=== PATIENT | male | born 1965 ===

== ENCOUNTER 2025-06-29 08:11 | Outpatient (AMB) | payer MEDICARE, SELFPAY ==
--- OUTSIDE RECORDS SUMMARY | 2024-11-06 04:15 | XMS_ITS ---
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 anicteric PERIPHERAL PULSES: normal BREASTS: no masses palpable b ilaterally MUSCULOSKELETAL: extremities unremark able, no clubbing, cyanosis or edema, There is pain to manipulation of the right thumb and right wrist and both knees without crepitus. LYMPH NODES: no enlarged lymph no josefina,spleen normal RECTAL EXAM: not examined PSYCH: alert, oriented ORAL CAVITY: normal, unremarkable Consultation Request Notes Referral Date Referring Provider Referred Provider Not es 11/06/2024 Will Hayes [facility] evaluate and treatment multiple joint pains in both hands and knees
--- OUTSIDE RECORDS SUMMARY | 2024-12-25 06:09 | XMS_ITS ---
Author Organization Will Hayes III, MD Address [address] [place] [address] [place] [address] Care Team Providers Care Diamond Driller Name Role Phone Dr. Will Hayes III Primary Care Provider [phone] REASON FOR VISIT Message Social History Sex Assigned At : Social History Observation Description Sex Assigned At Male Encounters Encounter Location Date Provider Diagnosis Will Hayes III, MD [address] [place] [address] [place] [address] 12/25/2024 Will Hayes Plan Of Treatment Next Appt Details Provider Name:Will Hayes , 09/07/2025 10:00:00 AM, [address] [place] [address] [place], [address], Provider Name:Will Hayes , 02/08/2026 02:00:00 PM, [address] [place] [address] [place], [address], Progress Notes * Zak ZAIDI ADOB:[birth year] (59 yo M)Acc No.[id number]:12/25/2024 Patient: Ike Zak BAILEY :1965 A ge:59 Y S ex:Male Address:[address] [place] [id number] * true * Date: Generated for Printi ng/Faxing/eTransmitting on: 08/29/2024 08:20 AM EST
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
--- OUTSIDE RECORDS SUMMARY | 2025-01-05 06:15 | XMS_ITS ---
Author Organization Will Hayes III, MD Address [address] [place] [address] [place] [address] Care Team Providers Care Yardage Control Clerk Name Role Phone Dr. Will Hayes III Primary Care Provider Allergies Allergen (clinical drug ingredient) Drug/Non Drug Allergy documented on EMR Reaction Allergy Type Onset Date Status Penicillin Unknown Drug Allergy Active ibuprofen Ibuprofen Unknown Drug Allergy Active aspirin Aspirin Unknown Drug Allergy Active REASON FOR VISIT Inflammatory arthritis both hands, Multiple myeloma in Remission, Lumbar radiculopathy, Hypertension, Cardiomyopathy, Hyperlipidemia, 9/a furniture, History of stem cell bone marrow transplant Medications Medication SIG (Take, Route, Frequency, [...] o r milk Orally Once a day 12/26/2024 Active Atorvastatin Calcium 20 MG Oral Active Clobetasol Propionate 0.05 % 1 application Externally Twice a day 02/01/2024 Active Social History Tobacco Use: Social History Observation Description Date Details (start date - stop date) Never Smoker NA - NA Sex Assigned At : Social History Observation Description Sex Assigned At Male Tobacco Use/Smoking Question Answer Notes Patient is a nonsmoker Additional Findings: Tobacco Non-User Aggressive non-smoker Vital Signs Height 73 in 01/05/2025 Weight 198 lbs 01/05/2025 BMI 26.12 kg/m2 01/05/2025 Encounters Encounter Location Date Provider Diagnosis Will Hayes III, MD [address] [place] [address] [place] [address] 01/05/2025 Will Hayes Multiple myeloma, remission status unspecified C90.00 ; Overweight E66.3 ; Lumbar radiculopathy M54.16 and Essential hypertension I10 Assessments Encounter Date Diagnosis (ICD Code) Assessment Notes Treat ment Notes Treatment Clinical Notes 01/05/2025 Multiple myeloma, remission status unspecified (ICD-10 - C90.00) Close observation and will continue. The remainder is a care of medical oncology [facility] as well as the [facility] [place]. The myeloma appears to be in remission still. 01/05/2025 Overweight (ICD-10 - E66.3) His body mass index is slightly higher than 25. It does not represent a health problem. 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 01/05/2025 Lumbar radiculopathy (ICD-10 - M54.16) Therapy for the joint pains. After the blood work if necessary prednisone will be considered. I will consult with the oncologist prior to this. 01/05/2025 Essential hypertension (ICD-10 - I10) His blood pressure has been well controlled. No change in the regimen [...] o r milk Orally Once a day 12/26/2024 Atorvastatin Calcium 20 MG Oral Clobetasol Propionate 0.05 % 1 applicati on Externally Twice a day 02/01/2024 Next Appt Details Follow Up: 3 Weeks, Reason: ov Provider Name:Will Hayes , 09/07/2025 10:00:00 AM, [address] [place] [address] [place], [address], Provider Name:Will Hayes , 02/08/2026 02:00:00 PM, [address] [place] [address] [place], [address], Progress Notes * Zak ZAIDI ADOB:[birth year] (59 yo M)Acc No.[id number]:01/05/2025 Patient: Zak CELESTE Provider: Jyoti Hayes MD :1965 A ge:59 Y S ex:Male Date:01/05/2025 Address:[address] [place], [place] [id number] Subjective: * Chief Complaints: * I nflammatory arthritis both handsMultiple myeloma in RemissionLumbar radiculopathyHypertensionCardiomyopathyHyperlipidemia9/a furnitureHistory of stem cell bone marrow transplant * HPI: * : He reports prednisone Hosie arthritis in his hands. He has an appointment to see rheumatology next month. Is beginning to feel better. There was no sign of recurrent myeloma on his examination today. Telehealth L ocation of provider rendering services: { ...} [address] [place] [address] L ocation of patient: pascual melo listed in demographics for today's visit P atient identification confirmed using: MICHELLE Ohara ame T elehealth method: T elephone only. Patient not visible to care provider. C onsent: P atient verbally consented to treatment, Patient verbally consented to billing insurance company, Patient informed of any privacy concerns related to method of visit T otal time spent with patient (mins) 1 5 * ROS: G eneral/Constitutional: pain F ingers and wrists, otherwise only normal aches and pains. C hills d enies. F atigue a [...] Muscle aches d enies. P ainful joints B oth hands.?Sciatica d enies. W eakness d enies. S kin: Itching d enies. R david d enies. S kin lesion(s)?denies. N eurologic: Difficulty speaking d enies. D izziness d enies.?Headache d enies. L ow back pain d enies. P sychiatric: Depressed mood w hich is mild. * Medical History: * Surgical History: D [...] ggressive non-smoker H roverto was born in [place], [place]. He has two healthy children with his ex-girlfriend Noe. 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 * Medications: T akingClobetasol Propionate 0.05 % Cream 1 application Externally Twice a day Atorvastatin Calcium 20 MG Tablet Oral Valsartan 80 MG Tablet 1 tablet Orally Once a day Calcium Carbonate Antacid 648 MG Tablet TAKE 1 TABLET BY MOUTH TWICE A DAY Oral Metoprolol Succinate ER 50 MG Tablet Extended Release 24 Hour 1 tablet Orally Once a day predniSONE 10 MG Tablet 1 tablet with food or milk Orally Once a day , stop date 01/15/2025Medication List reviewed and reconciled with the patientTaking [...] 1 tablet Orally Once a day Taking predniSONE 10 MG Tablet 1 tablet with food or milk Orally Once a day , stop date 01/15/2025Medication List reviewed and reconciled with the patient * Allergies: A spirinIbuprofenPenicillinno[Allergies Verified] Objective: * Vitals: H t: 73, Wt: 198, BMI:26.12, Ht-cm: 185.42, Wt-k.81. Assessment: * Assessment: 1. M ultiple myeloma, remission status unspecified - C90.00 (Primary) N otes :Close observation and will continue. The remainder is a care of medical oncology [facility] as well as the [facility] [place]. The myeloma appears to be in remission still. 2 . O verweight - E66.3 N otes :His body mass index is slightly higher than 25. It does not represent a health problem. 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 3 . L umbar radiculopathy - M54.16 N otes :Therapy for the joint pains. After the blood work if necessary prednisone will be considered. I will consult with the oncologist prior to this. 4 . E ssential hypertension - I10 N otes :His blood pressure has been well controlled. No change in the regimen as needed. time. Plan: * Treatment: * Procedure Codes: 9 8012 SYNCH AUDIO-ONLY EST SF 10 * Preventive Medicine: Counseling: C are goal [...] * Provider: Jyoti Hayes MD Date: 0 01/05/2025 Generated for Shanita sanchez/Yeny/Radhasmitting on: 08/29/2024 08:19 AM EST History and Physical Notes * HPI (History of Present Illness) Category Sub-Category Detail Notes Telehealth Location of [facility] rendering services:: {...} [address] [facility] [address] Location of patient:: address listed in demographics for today's visit Patient identification confirmed using:: Name, Telehealth method:: Telephone only. Sarahy ent not visible to care provider. Consent:: Patient verbally c onsented to treatment, Patient verbally consented to billing insurance company, Patient informed of any privacy concerns related to method of visit Total time spent with patient (mins): 15
--- OUTSIDE RECORDS SUMMARY | 2025-01-19 05:45 | XMS_ITS ---
Author Organization Will Hayes III, MD Address [address] [place] [address] [place] [address] Care Team Providers Care Stem Threshing Machine Operator Name Role Phone Dr. Will Hayes III Primary Care Provider Allergies Allergen (clinical drug ingredient) Drug/Non Drug Allergy documented on EMR Reaction Allergy Type Onset Date Status Penicillin Unknown Drug Allergy Active ibuprofen Ibuprofen Unknown Drug Allergy Active aspirin Aspirin Unknown Drug Allergy Active REASON FOR VISIT Inflammatory arthritis, Multiple myeloma, History of bone marrow transplant, Lumbar radiculopathy, Benign prostatic hypertrophy, Hypertension Medications Medication SIG (Take, Route, Frequency, Duration) Notes Start Date End Date Status predniSONE 10 MG 1 tablet with food o r milk Orally Once a day 12/26/2024 Active Metoprolol Succinate ER 50 MG 1 tablet Orally Once a day Active Calcium Carbonate Antacid 648 MG TAKE 1 TABLET BY MOUTH TWICE A DAY Oral Active Valsartan 80 MG 1 tablet Orally Once a day Active Atorvastatin Calcium 20 MG Oral Active [...] Aggressive non-smoker Vital Signs Height 73 in 01/19/2025 Weight 198 lbs 01/19/2025 BMI 26.12 kg/m2 01/19/2025 Encounters Encounter Location Date Provider Diagnosis Will Hayes III, MD [address] [place] [address] [place] [address] 01/19/2025 Will Hayes Multiple myeloma, remission status unspecified C90.00 ; Multiple joint pain M25.50 ; Hx of stem cell transplant Z94.84 ; Other cardiomyopathy I42.8 and Essential hypertension I10 Assessments Encounter Date Diagnosis (ICD Code) Assessment Notes Treat ment Notes Treatment Clinical Notes 01/19/2025 Multiple myeloma, remission status unspecified (ICD-10 - C90.00) He is stable in remission. He will maintain in the care of medical oncology [facility] as well as the [facility] [place]. The myeloma appears to be in remission still. 01/19/2025 Multiple joint pain (ICD-10 - M25.50) He was continued on the prednisone although he has had no relief so far. Is going to see rheumatology 01/19/2025 Hx of stem cell transplant (ICD-10 - Z94.84) He has relapsed since. Continues on treatment. 01/19/2025 Other cardiomyopathy (ICD-10 - I42.8) His current ejection fraction is normal. He will be reevaluated periodically. He is no longer symptomatic. 01/19/2025 Essential hypertension (ICD-10 - I10) His blood pressure has been well controlled. No change in the regimen as needed. time. Plan Of Treatment Medication Medication Name Sig Start Date Stop Date Notes predniSONE 10 MG 1 tablet with food o r milk Orally Once a day 12/26/2024 Metoprolol Succinate ER 50 MG 1 tablet Orally Once a day Calcium Carbonate Antacid 64 8 MG TAKE 1 TABLET BY MOUTH TWICE A DAY Oral Valsartan 80 MG 1 tablet Orally Once a day Atorvastatin Calcium 20 MG Oral Clobetasol Propionate 0.05 % 1 applicati on Externally Twice a day 02/01/2024 Next Appt Details Follow Up: As Scheduled, Sruthi son: Annual Exam Provider Name:Will Hayes , 09/07/2025 10:00:00 AM, [address] [place] [address] [address], [place], [address], Provider Name:Will Hayes , 02/08/2026 02:00:00 PM, [address] [place] [address] [address], [place], [address], Progress Notes * Zak WEINSTEIN ADOB:[birth year] (59 yo M)Acc No.[id number]:01/19/2025 Patient: Zak CELESTE Provider: Jyoti Hayes MD :1965 A ge:59 Y S ex:Male Date:01/19/2025 Address:[address] [place], [place] [id number] Subjective: * Chief Complaints: * I nflammatory arthritisMultiple myelomaHistory of bone marrow transplantLumbar radiculopathyBenign prostatic hypertrophyHypertension * HPI: * : This telehealth visit took place over 15 minutes with the patient at home and me in my office. He gave consent for billing. His arthritis is about the same despite medication. It is primarily in his hands and upper extremities. He has had no fever or chills and is eating without any difficulty. He has had no nausea or vomiting. He is being referred to rheumatology as soon as possible. Prednisone will be continued. Telehealth L ocation of provider rendering services: { ...} [address] [facility] [address] L ocation of patient: pascual ddress listed in demographics for today's visit P [...] 1 5 * ROS: G eneral/Constitutional: pain J oints of the upper extremities. C hills d enies. F atigue a dmits. F ever d enies. E NT: Decreased hearing d enies. R espiratory: Cough d enies. C ardiovascular: Chest pain with exertion d enies. D yspnea on exertion?denies. S hortness of breath d enies. G astrointestinal: Constipation d enies. D ecreased appetite d enies.?Diarrhea d enies. H eartburn d enies. N ausea d enies. R ectal bleeding?denies. V omiting d enies. H ematology: bruising d enies. p etechiae d enies. S wollen glands n one have been noted. G enitourinary: Frequent urination t wice a night. M usculoskeletal: Muscle aches d [...] ggressive non-smoker H roverto was born in [place], [place]. He has two healthy children with his ex-girlfriend Noe. 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 * Medications: T akingClobetasol Propionate 0.05 % [...] food or milk Orally Once a day Medication List reviewed [...] food or milk Orally Once a day Medication List reviewed and reconciled with the patient * Allergies: A spirinIbuprofenPenicillinno[Allergies Verified] Objective: * Vitals: H t: 73, Wt: 198, BMI:26.12, Ht-cm: 185.42, Wt-k.81. * P ast Orders: L ab:Vitamin D 25-OH Total (Order Date - 11/06/2024) (Collection Date & Time - 11/06/2024 09:59 AM) Value Reference Range Vitamin D 25-OH Total 47.4 >30 - ng/mL Lab:Immunofixation Pnl, Seru m * Collection Date [...] Interpretation SEE NOTE SEE NOTE SEE NOTE * Lab:Complete Blood Count Aut o Diff [...] Time - 11/06/2024 09:59 AM)?ValueReference Range?Erythrocyte Sedimentation [id number] - MM/HR ???Lab:Rheumatoid Factor (Order Date - [...] Creatinine Clr Calc Pharmacy 89.8 NR 99.1 ???Lab:C Reactive Protein (Order Date - 11/06/2024) (Collection Date & Time - 11/06/2024 09:59 AM)?ValueReference Range?C Reactive Protein4.09H< or = 0.50 - mg/dL ???Lab:Uric Acid (Order Date - 11/06/2024) (Collection Date & Time - 11/06/2024 09:59 AM)?ValueReference Range?Uric Acid5.13.4-7.0 - mg/dL ???Lab:Prostate Specific Antigen (Order Date - 11/06/2024) (Collection Date & Time - 11/06/2024 09:59 AM)?ValueReference Range?Prostate Specific Antigen0.94<0.05-4.0 - ng/mL * Lab:[place]/Lambda Lt Ch,Free w rat * Collection Date 12/08/2024 07/07/2024 12/19/2023 Collection Time 08:38 AM 08:10 AM 08:31 AM Order Date 12/08/2024 07/07/2024 12/19/2023 [place] Light Chain, Free Serum 10.0 (Ref Range: 3.3-19.4 mg/L) 5.5 (Ref Range: 3.3-19.4 mg/L) 4.9 (Ref Range: 3.3-19.4 mg/L) Lambda Light Chain, Free Serum 8.8 (Ref Range: 5.7-26.3 mg/L) 5.1 A (Ref Range: 5.7-26.3 mg/L) 4.3 A (Ref Range: 5.7-26.3 mg/L) [place]/Lambda Lt Ch Free Ratio 1.14 (Ref Range: 0.26-1.65) 1.08 (Ref Range: 0.26-1.65) 1.14 (Ref Range: 0.26-1.65) Assessment: * Assessment: 1. M ultiple myeloma, remission status unspecified - C90.00 (Primary) N otes :He is stable in remission. He will maintain in the care of medical oncology [facility] as well as the [facility] [place]. The myeloma appears to be in remission still. 2 . M ultiple joint pain - M25.50 N otes :He was continued on the prednisone although he has had no relief so far. Is going to see rheumatology 3 . H x of stem cell transplant - Z94.84 N otes :He has relapsed since. Continues on treatment. 4 . O ther cardiomyopathy - I42.8 N otes :His current ejection fraction is normal. He will be reevaluated periodically. He is no longer symptomatic. 5 . E ssential hypertension - I10 N otes :His blood pressure has been well controlled. No change in the regimen as needed. time. Plan: * Treatment: * Procedure Codes: 9 8012 SYNCH AUDIO-ONLY EST SF 10 * Preventive Medicine: Counseling: C are goal follow-up plan: Counseling for abnormal BMI given Y es Above Normal BMI Follow-up D ietary management education, guidance, and counseling * Follow Up: A s Scheduled (Reason: Annual Exam) * Images: * Sign off status: Completed true * Provider: Jyoti Hayes MD Date: 0 01/19/2025 Generated for Shanita sanchez/Yeny/Aura on: 08/29/2024 08:20 AM EST History and Physical Notes * HPI (History of Present Illness) Category Sub-Category Detail Notes Telehealth Location of [facility] rendering services:: {...} [address] [place] [address] [place] [address] Location of patient:: address listed in demographics [...]
--- OUTSIDE RECORDS SUMMARY | 2025-01-28 08:27 | XMS_ITS ---
Author Organization Will Hayes III, MD Address [address] [place] [address] [place] [address] Care Team Providers Care Director Sanitation Bureau Name Role Phone Dr. Will Hayes III Primary Care Provider [phone] REASON FOR VISIT told patient to call Social History Sex Assigned At : Social History Observation Description Sex Assigned At Male Encounters Encounter Location Date Provider Diagnosis Will Hayes III, MD [address] [place] [address] [place] [address] 01/28/2025 Will Hayes Plan Of Treatment Next Appt Details Provider Name:Will Hayes , 09/07/2025 10:00:00 AM, [address] [place] [address] [place], [address], Provider Name:Will Hayes , 02/08/2026 02:00:00 PM, [address] [place] [address] [place], [address], Progress Notes * Zak ZAIDI ADOB:[birth year] (59 yo M)Acc No.[id number]:01/28/2025 Patient: Ike SAUCEDOZak SHERIFF :1965 A ge:59 Y S ex:Male Address:[address] [place] [phone] * true * Date: Generated for Printi ng/Faxing/eTransmitting on: 08/29/2024 08:19 AM EST
--- OUTSIDE RECORDS SUMMARY | 2025-01-28 10:03 | XMS_ITS ---
Author Organization Will Hayes III, MD Address [address] [place] [address] [place] [address] Care Team Providers Care Framing Carpenter Name Role Phone Dr. Will Hayes III Primary Care Provider [phone] Medications Medication SIG (Take, Route, Frequency, Duration) Notes Start Date End Date Status Meloxicam 15 MG 1 tablet Orally Once a day for 30 days allergy to aspirin known 01/28/2025 01/23/2026 Active Social History Sex Assigned At : Social History Observation Description Sex Assigned At Male Encounters Encounter Location Date Provider Diagnosis Will Hayes III, MD [address] [place] [address] [place] [address] 01/28/2025 Will Hyaes Plan Of Treatment Medication Medication Name Sig Start Date Stop Date Notes Meloxicam 15 MG 1 tablet Orally Once a day for 30 days 01/28/2025 01/23/2026 allergy to aspirin k nown Next Appt Details Provider Name:Will Hayes , 09/07/2025 10:00:00 AM, [address] [place] [address] [place], [address], Provider Name:Will Hayes , 02/08/2026 02:00:00 PM, [address] [place] [address] [place], [address], Progress Notes * Zak ZAIDI ADOB:[birth year] (59 yo M)Acc No.[id number]:01/28/2025 Patient: Ike Zak BAILEY :1965 A ge:59 Y S ex:Male Address:[address] [place] [phone] * Refills Start Meloxicam Tablet, 15 MG, Orally, 30, 1 tablet, Once a day, 30 days, Refills=11 * true * Date: Generated for Shanita sanchez/Yeny/Aura on: 08/29/2024 08:20 AM EST
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
--- OUTSIDE RECORDS SUMMARY | 2025-02-13 09:45 | XMS_ITS ---
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 Will Hayes III Primary Care Provider [phone] Allergies Allergen (clinical drug ingredient) Drug/Non Drug Allergy documented on EMR Reaction Allergy Type Onset Date Status Information temporarily unavailable Penicillin Unknown Drug Allergy Active Information temporarily unavailable No Known Food Allergy Unknown Drug Allergy Active Information temporarily unavailable Ibuprofen Unknown Drug Allergy Active Information temporarily unavailable Aspirin Unknown Drug Allergy Active REASON FOR VISIT Pain right upper extremity, Inflammatory arthritis, Multiple myeloma, Lumbar radiculopathy, Benign prostatic hypertrophy, Hypertension, Cardiomyopathy, History of stem cell transplant Medications Medication SIG (Take, Route, Frequency, Duration) Notes Start Date End Date Status predniSONE 10 MG 1 tablet with food or milk Orally Once a day 12/26/2024 Active Cyclobenzaprine HCl 10 MG 1 tablet at bedtime if needed Orally three times a day 02/04/2025 Active Meloxicam 15 MG 1 tablet Orally Once a day allergy to aspirin known 01/28/2025 Active Clobetasol Propionate 0.05 % 1 application Externally Twice a day 02/01/2024 Active Atorvastatin Calcium 20 MG Oral Active Valsartan 80 MG 1 tablet Orally Once a day Active Calcium Carbonate Antacid 648 MG TAKE 1 TABLET BY MOUTH TWICE A DAY Oral Active Metoprolol Succinate ER 50 MG 1 tablet Orally Once a day Active Social History Tobacco Use: Social History Observation Description Date Details (start date - stop date) Former Smoker NA - NA Sex Assigned At : Social History Observation Description Sex Assigned At Male Tobacco Control (Standard) Question Answer Notes Tobacco use: Former smoker How long has it been since you last smoked? Sammie ter than 10 years Additional Findings: Tobacco non-user Ex-cigaret te smoker Problems Problem Type SNOMED Code ICD Code Onset Dates Problem Status W/U Status Risk Notes Problem 9915382 Inflammatory arthritis (M19.90) Active confirmed He was continued on his current medications. He may need physical therapy. Images will be obtained if he does not improve rapidly. Encounters Encounter Location Date Provider Diagnosis Will aHyes III, MD [address] [place] [address] [place] [address] 02/13/2025 Will Hayes Multiple myeloma, remission status unspecified C90.00 ; Overweight E66.3 ; Lumbar radiculopathy M54.16 ; Enlarged prostate with lower urinary tract symptoms N40.1 ; Essential hypertension I10 ; Former smoker Z87.891 and Inflammatory arthritis M19.90 Assessments Encounter Date Diagnosis (ICD Code) Assessment Notes Treat ment Notes Treatment Clinical Notes 02/13/2025 Multiple myeloma, remission status unspecified (ICD-10 - C90.00) He is stable in remission. He will maintain in the care of medical oncology [facility] as well as [facility] [place]. The myeloma appears to be in remission still. 02/13/2025 Overweight (ICD-10 - E66.3) His body mass index is slightly higher than 25. It does not represent a health problem. 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 02/13/2025 Lumbar radiculopathy (ICD-10 - M54.16) Therapy for the joint pains. After the blood work if necessary prednisone will be considered. I will consult with the oncologist prior to this. 02/13/2025 Enlarged prostate with lower urinary tract symptoms (ICD-10 - N40.1) He rises from sleep once or twice a night to urinate. We discussed lifestyle modifications asymptomatic to reduce nocturia. 02/13/2025 Essential hypertension (ICD-10 - I10) His blood pressure has been well controlled. No change in the regimen as needed. time. 02/13/2025 Former smoker (ICD-10 - Z87.891) He has a plan to prevent relapse in times of stress and illness. 02/13/2025 Inflammatory arthritis (ICD-10 - M19.90) He was continued on his current medications. He may need physical therapy. Images will be obtained if he does not improve rapidly. Plan Of Treatment Medication Medication Name Sig Start Date Stop Date Notes predniSONE 10 MG 1 tablet with food o r milk Orally Once a day 12/26/2024 Cyclobenzaprine HCl 10 MG 1 tablet at be dtime if needed Orally three times a day 02/04/2025 Meloxicam 15 MG 1 tablet Orally Once a day 01/28/2025 allergy to aspirin known Clobetasol Propionate 0.05 % 1 application Externally Twice a day 02/01/2024 Atorvastatin Calcium 20 MG Oral Valsartan 80 MG 1 tablet Orally Once a day Calcium Carbonate Antacid 648 MG TAKE 1 TABLET BY MOUTH TWICE A DAY Oral Metoprolol Succinate ER 50 MG 1 tablet Orally Once a day Next Appt Details Follow Up: 2 Weeks, Reason: ov Provider Name:Will Hayes , 09/07/2025 10:00:00 AM, [address] [place] [address] [place], [address], Provider Name:Will Hayes , 02/08/2026 02:00:00 PM, [address] [place] [address] [address], [place], [address], Progress Notes * TELMA Zak CAMPOVERDE ADOB:[birth year] (59 yo M)Acc No.[id number]:02/13/2025 Patient: Ike CAMPOVERDE Zak Little Provider: Jyoti Hayes MD :1965 A ge:59 Y S ex:Male Date:02/13/2025 Address:[address] [place] [address] ZENON RODRIGUEZ [id number] Subjective: * Chief Complaints: * P ain right upper extremityInflammatory arthritisMultiple myelomaLumbar radiculopathyBenign prostatic hypertrophyHypertensionCardiomyopathyHistory of stem cell transplant * HPI: * : Akbar layne reports very little relief from the prednisone. The pain in his right arm is slightly better. He still complains of sleeping too much. He is up-to-date with all of his solutions delivery consultant visits and is compliant with all of his medications.He was given an appointment in another 2 weeks to see if the mild improvement in the pain continues. No change in his therapy was made today. His blood work from last December was reviewed with him. His myeloma remains in remission. Telehealth L ocation of provider rendering services: { ...} [address] [facility] [address] L ocation of patient: pascual melo listed [...] 1 5 * ROS: G eneral/Constitutional: pain R ight shoulder and elbow. C hills d enies.?Fatigue a dmits. F ever d enies. E NT: Decreased hearing d enies. R espiratory: Cough d enies. C ardiovascular: Chest pain with exertion d enies. D yspnea on exertion?denies. S hortness of breath d enies. G astrointestinal: Constipation d enies. D ecreased appetite d enies.?Diarrhea d enies. H eartburn o ccasional. N ausea d enies. R ectal bleeding d enies. V omiting d enies. H ematology: bruising d enies. p etechiae d enies. S wollen glands n one have been noted. G enitourinary: Frequent urination o nce a night. M usculoskeletal: Muscle aches d enies. P ainful joints R ight shoulder and elbow. S ciatica d enies. W eakness d enies. S kin: Itching d enies. R david d enies. S kin lesion(s)?denies. N eurologic: Difficulty speaking d enies. D izziness d enies.?Headache d enies. L ow back pain d enies. P sychiatric: Depressed mood d enies. * Medical History: * Surgical History: N [...] dditional Findings: Tobacco non-user E x-cigarette smoker Akbar layne was born in [place], [place]. He has two healthy children with his ex-girlfriend Noe. 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 * Medications: T akingMeloxicam 15 MG Tablet 1 tablet Orally Once a day , Notes to Pharmacist: allergy to aspirin knownClobetasol Propionate 0.05 % Cream 1 application Externally [...] food or milk Orally Once a day Cyclobenzaprine HCl 10 MG Tablet 1 tablet at bedtime if needed Orally three times a day , stop date 03/16/2025Medication List reviewed and reconciled with the patientTaking Meloxicam 15 MG Tablet 1 tablet Orally Once a day , Notes to Pharmacist: allergy to aspirin knownTaking Clobetasol Propionate 0.05 % Cream 1 application [...] or milk Orally Once a day Taking Cyclobenzaprine HCl 10 MG Tablet 1 tablet at bedtime if needed Orally three times a day , stop date 03/16/2025Medication List reviewed and reconciled with the patient * Allergies: A spirinIbuprofenPenicillinNo Known Food Allergyno[Allergies Verified] Objective: * Vitals: * P ast Orders: Lab:Immunofixation [place] * Collection Date 12/08/2024 11/06/2024 07/07/2024 Collection [...] X10*3/uL) 0.000 (Ref Range: 0.0-0.012 X10*3/uL) * Lab:Comprehensive Met. Panel * Collection Date [...] Range: < OR = 2.51 mg/L) * Lab:[place]/Lambda [place] Ch,Free w rat * Collection Date 12/08/2024 07/07/2024 12/19/2023 Collection Time 08:38 AM 08:10 AM 08:31 AM Order Date 12/08/2024 07/07/2024 12/19/2023 [place] Light Chain, Free Serum 10.0 (Ref Range: 3.3-19.4 mg/L) 5.5 (Ref Range: 3.3-19.4 mg/L) 4.9 (Ref Range: 3.3-19.4 mg/L) Lambda Light Chain, Free Serum 8.8 (Ref Range: 5.7-26.3 mg/L) 5.1 A (Ref Range: 5.7-26.3 mg/L) 4.3 A (Ref Range: 5.7-26.3 mg/L) [place]/Lambda [facility] Ch Free Ratio 1.14 (Ref Range: 0.26-1.65) 1.08 (Ref Range: 0.26-1.65) 1.14 (Ref Range: 0.26-1.65) Assessment: * Assessment: 1. M ultiple myeloma, remission status unspecified - C90.00 (Primary) N otes :He is stable in remission. He will maintain in the care of medical oncology [facility] as well as the [facility] [place]. The myeloma appears to be in remission [...] oncologist prior to this. 4 . E nlarged prostate with lower urinary tract symptoms - N40.1 ?Notes :He rises from sleep once or twice a night to urinate. We discussed lifestyle modifications asymptomatic to reduce nocturia. 5 . E ssential hypertension - I10 N otes :His blood pressure has been well controlled. No change in the regimen as needed. time. 6 . F ormer smoker - Z87.891 N otes :He has a plan to prevent relapse in times of stress and illness. 7 . I nflammatory arthritis - M19.90 N otes :He was continued on his current medications. He may need physical therapy. Images will be obtained if he does not improve rapidly. Plan: * Treatment: 2. O thers Continue Meloxicam Tablet, 15 MG, 1 tablet, Orally, Once a day, Notes to Pharmacist: allergy to aspirin known. * Procedure Codes: 9 8012 SYNCH AUDIO-ONLY EST SF 10 * Preventive Medicine: Counseling: C are goal follow-up plan: Counseling for abnormal BMI given Y es Above Normal BMI Follow-up D ietary management education, guidance, and counseling S moking/Tobacco Use Patient counseled on the dangers of tobacco use and urged to quit. 0 02/13/2025 * Follow Up: 2 Weeks (Reason: ov) * Images: * Sign off status: Completed true * Provider: Jyoti Hayes MD Date: 0 02/13/2025 Generated for Shanita sanchez/Yeny/Aura on: 1 08/29/2024 08:19 AM EST History and Physical Notes * HPI (History of Present Illness) Category Sub-Category Detail Notes [facility] {...} [address] [place] [address] [place] [id number] Location of patient:: address listed in demographics [...]
--- OUTSIDE RECORDS SUMMARY | 2025-03-06 04:30 | XMS_ITS ---
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 Will Hayes III Primary Care Provider [phone] Allergies Allergen (clinical drug ingredient) Drug/Non Drug Allergy documented on EMR Reaction Allergy Type Onset Date Status Penicillin Unknown Drug Allergy Active No Known Food Allergy Unknown Drug Allergy Active ibuprofen Ibuprofen Unknown Drug Allergy Active aspirin Aspirin Unknown Drug Allergy Active Reason For Referral Reason Consult and Treat worsening muscle pain weakness Questioning Muscle Disorder Questioning Neuropathy Diagnosis 1 Muscle weakness (M62 .81) Diagnosis 2 Other myositis, unsp ecified site (M60.80) Referral Organization Will Hayes III, MD Referring Provider First Name Will Referring Provider Last Name Abigail Referring Provider Speciality Internal M edicine Referred Provider Doreen Aguilar Referred Provider Specialty Neurology General Notes DCallie 03/16/2025 09:37:56 AM > faxed referral with progress note Referral Priority Routine Referral Appointment Date 07/01/2025 REASON FOR VISIT Myalgias, Lower extremity weakness, Arthritis, Myeloma and remission, Benign prostatic hypertrophy,Hyperlipidemia Medications Medication SIG (Take, Route, Frequency, Duration) [...] Problem Status W/U Status Risk Notes Problem [id number] Myalgia (M79.10) Active confirmed a new complaint today is aching muscles and weakness in his legs with improvement in the joint pains in his upper extremities. I have ordered thyroid function tests and a CPK and an LDH. I have requested a neurology consultation as to the etiology. Vital Signs Temperature 97.0 degrees Fahrenheit 03/06/20 25 Blood pressure systolic 104 mm Hg 03/06/20 25 Blood pressure diastolic 74 mm Hg 025 Heart Rate 88 /min 03/06/2025 Height 73 in 03/06/2025 Weight 185 lbs 03/06/2025 BMI 24.41 kg/m2 03/06/2025 Encounters Encounter Location Date Provider Diagnosis Will Hayes III, MD [address] [place] [address] [place] [address] 03/06/2025 Will Hayes Multiple myeloma, remission status unspecified C90.00 ; Hyperlipidemia, unspecified hyperlipidemia E78.5 ; Overweight E66.3 ; Other cardiomyopathy I42.8 ; Myalgia M79.10 ; Migraine G43.909 ; Former smoker Z87.891 and Inflammatory arthritis M19.90 Assessments Encounter Date Diagnosis (ICD Code) Assessment Notes Treat ment Notes Treatment Clinical Notes 03/06/2025 Multiple myeloma, remission status unspecified (ICD-10 - C90.00) He is stable in remission. He will maintain in the care of medical oncology [facility] as well as the [facility] [place]. The myeloma appears to be in remission still. 03/06/2025 Hyperlipidemia, unspecified hyperlipidemia (ICD-10 - E78.5) his lipids have been stable. They will be checked periodically. No change in his regimen was made today. 03/06/2025 Overweight (ICD-10 - E66.3) he has lost 7 pounds since his last visit. He has been steadily losing weight for several months. His appetite is poor and he cannot explain it. He has also been complaining of joint pain and now of weakness and muscle pain in his lower extremities which is being investigated. 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 It seems to be compensated at this time. There is no peripheral edema or rales. His neck veins are not distended. 03/06/2025 Myalgia (ICD-10 - M79.10) a new complaint today is aching muscles and weakness in his legs with improvement in the joint pains in his upper extremities. I have ordered thyroid function tests and a CPK and an LDH. I have requested a neurology consultation as to the etiology. 03/06/2025 Migraine (ICD-10 - G43.909) His migraine headaches have resolved. 03/06/2025 Former smoker (ICD-1 0 - Z87.891) He has a plan to prevent relapse in times of stress and illness. 03/06/2025 Inflammatory arthritis (ICD-10 - M19.90) He was [...] day 02/01/2024 Atorvastatin Calcium 20 MG Oral Calcium Carbonate Antacid 648 MG TAKE 1 TABLET BY MOUTH TWICE A DAY Oral Metoprolol Succinate ER 50 MG 1 tablet Orally Once a day Valsartan 80 MG 1 tablet Orally Once a day Pending Test Test Name Order Date LDH 03/06/2025 TSH (THYROID STIMULATING HORMONE) 2024 CPK 03/06/2025 CBC w DIFF 03/06/2025 SED RATE (ESR) 03/06/2025 FREE T3 (FT3) 03/06/2025 Free T4 (Free Thyroxine) 03/06/2025 Referrals Referral Date Details 03/06/2025 03/06/2025, Consult and Treat worsening muscle pain weakness Questioning Muscle Disorder Questioning Neuropathy, Doreen Aguilar Next Appt Details Follow Up: 6 Months, Reason: OV Provider Name:Will Hayes , 09/07/2025 10:00:00 AM, [address] [place] [address] [address], [place], [address], Provider Name:Will Hayes , 02/08/2026 02:00:00 PM, [address] [place] [address] [address], [place], [address], Progress Notes * TELMA CAMPOVERDE Zak ADOB:[birth year] (59 yo M)Acc No.[id number]:03/06/2025 Progress Notes Patient: Zak CELESTE A Provider: Jyoti Hayes MD :1965 A ge:59 Y S ex:Male Date:03/06/2025 Address:[address] [place], [place] [id number] Subjective: * Chief Complaints: * M yalgiasLower extremity weaknessArthritisMyeloma and remissionBenign prostatic hypertrophyHyperlipidemia * HPI: C OVID-19 Screening: H is complaints in the past have been primarily pain in the joints usually of the upper extremities which have been called inflammatory arthritis. He now says the pain in his arms has improved substantially but he has pain in his legs and weakness. The pain is not in his joints of his legs but is in his muscles primarily the quaadriceps and he says he feels weak. He is able to walk only short distances without having to stop and rest. This has been accompanied by a slow but steady weight loss. He has lost 7 pounds since his last visit. His appetite is poor and he cannot explain it. His reflexes today were diminished. I have asked for neurology opinion about the nature of the muscle weakness. He has and appointment March 17 with rheumatology. There was no sign of progression of the multiple myeloma. Questions H ave you had any new onset fever, chills, cough, congestion, sore throat, shortness of breath, muscle aches? N o * ROS: G eneral/Constitutional: pain L eg muscles primarily quadriceps. C hills d enies. F atigue a [...] enies. S ciatica d enies. W eakness B elow the waist. S kin: Itching d enies. R david d enies. S kin lesion(s)?denies. N eurologic: Difficulty speaking d enies. D izziness d enies.?Headache d enies. L ow back pain d enies. P sychiatric: Depressed mood w hich is moderate. * Medical History: * Surgical History: N [...] x-cigarette smoker Akbar layne was born in [place], [place]. He has two healthy children with his ex-girlfriend Noe. 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 * Medications: T akingMeloxicam 15 MG Tablet [...] if needed Orally three times a day Medication List reviewed and reconciled [...] if needed Orally three times a day Medication List reviewed and reconciled with the patient * Allergies: A spirinIbuprofenPenicillinNo Known Food Allergyno[Allergies Verified] Objective: * Vitals: H t: 73, Wt: 185, BMI:24.41, BP: 104/74, HR: 88, Temp: 97.0, Ht-cm: 185.42, Wt-k.91. * P ast Orders: Lab:Immunofixation [facility], Seru [...] Range: < OR = 2.51 mg/L) * Lab:[place]/Lambda Lt Ch,Free w rat * Collection Date 12/08/2024 07/07/2024 12/19/2023 Collection Time 08:38 AM 08:10 AM 08:31 AM Order Date 12/08/2024 07/07/2024 12/19/2023 [place] Light Chain, Free Serum 10.0 (Ref Range: 3.3-19.4 mg/L) 5.5 (Ref Range: 3.3-19.4 mg/L) 4.9 (Ref Range: 3.3-19.4 mg/L) Lambda Light Chain, Free Serum 8.8 (Ref Range: 5.7-26.3 mg/L) 5.1 A (Ref Range: 5.7-26.3 mg/L) 4.3 A (Ref Range: 5.7-26.3 mg/L) [place]/Lambda Lt Ch Free Ratio 1.14 (Ref Range: 0.26-1.65) 1.08 (Ref Range: 0.26-1.65) 1.14 (Ref Range: 0.26-1.65) * Examination: G eneral Examination: GENERAL APPEARANCE: p leasant, well nourished, well developed, in no acute distress, calm and relaxed, Chronically ill-appearing. HEAD: a traumatic, normocephalic. EYES: e yenni, [...] mass. RECTAL EXAM: n ot examined. MUSCULOSKELETAL: gentleman the extremities appear normal.There is no obvious muscle wasting. Reflexes were diminished in all areas but symmetrical. Speech was clear. The quadriceps were tender to massage, joints appeared normal with normal range of motion. PERIPHERAL PULSES: n ormal. NEUROLOGIC: a lert and oriented, cranial nerves 2-12 grossly intact, deep tendon reflexes 2+ symmetrical, motor strength normal upper and lower extremities, sensory exam intact. PSYCH: a lert, oriented: mood depressed. ? Assessment: * Assessment: 1. M ultiple myeloma, remission status unspecified - C90.00 (Primary) N otes :He is stable in remission. He will maintain in the care of medical oncology [facility] as well as the [facility] cancer [place]. The myeloma appears to be in remission still. 2 . H yperlipidemia, unspecified hyperlipidemia - E78.5 N otes :his lipids have been stable. They will be checked periodically. No change in his regimen was made today. 3 . O verweight - E66.3 N otes :he has lost 7 pounds since his last visit. He has been steadily losing weight for several months. His appetite is poor and he cannot explain it. He has also been complaining of joint pain and now of weakness and muscle pain in his lower extremities which is being investigated. 4 . O ther cardiomyopathy - I42.8 N otes :his coronary myopathy was first noted when he was receiving chemotherapy for the myeloma. It seems to be compensated at this time. There is no peripheral edema or rales. His neck veins are not distended. 5 . M yalgia - M79.10 N otes :a new complaint today is aching muscles and weakness in his legs with improvement in the joint pains in his upper extremities. I have ordered thyroid function tests and a CPK and an LDH. I have requested a neurology consultation as to the etiology. 6 . M igraine - G43.909 N otes :His migraine headaches have resolved. 7 . F ormer smoker - Z87.891 N otes :He has a plan to prevent relapse in times of stress and illness. 8 . I nflammatory arthritis - M19.90 N otes :He was continued on his current medications. He may need physical therapy. Images will be obtained if he does not improve rapidly. Plan: * Treatment: 2. H yperlipidemia, unspecified hyperlipidemia L AB: LDH L AB: TSH (THYROID STIMULATING HORMONE) L AB: CPK L AB: CBC w DIFF L AB: SED RATE (ESR) L AB: FREE T3 (FT3) L AB: Free T4 (Free Thyroxine) 3. O verweight L AB: LDH L AB: TSH (THYROID STIMULATING HORMONE) L AB: CPK L AB: CBC w DIFF L AB: SED RATE (ESR) L AB: FREE T3 (FT3) L AB: Free T4 (Free Thyroxine) 4. O ther cardiomyopathy L AB: LDH L AB: TSH (THYROID STIMULATING HORMONE) L AB: CPK L AB: CBC w DIFF L AB: SED RATE (ESR) L AB: FREE T3 (FT3) L AB: Free T4 (Free Thyroxine) 5. O thers Continue Meloxicam Tablet, 15 MG, 1 tablet, Orally, Once a day, Notes to Pharmacist: allergy to aspirin known. Referral To:Doreen Aguilar Neurology Reason:Consult and Treat worsening muscle pain weakness Questioning Muscle Disorder Questioning Neuropathy * Procedure Codes: * Preventive Medicine: Counseling: S moking/Tobacco Use Patient counseled on the dangers of tobacco use and urged to quit. 0 03/06/2025 * Follow Up: 6 Months (Reason: OV) * Images: * Sign off status: Completed true * Provider: Jyoti Hayes MD Date: 0 03/06/2025 Generated for Jayleni daniel/Yeny/eTransmitting on: 1 08/29/2024 08:20 AM EST History and Physical Notes * HPI (History of Present Illness) Category Sub-Category Detail Notes COVID-19 Screening Questions Have you had any new onset fever, chills, cough, congestion, sore throat, shortness of breath, muscle aches?: No Examination Category Sub-Category Detail Notes General Examination GENERAL APPEARANCE: pleasant , well nourished, well developed, in no acute distress, calm and relaxed, Chronically ill-appearing HEAD: atraumatic, normocep halic EYES: eomi, perrla, [...] BREASTS: no masses palpable b ilaterally MUSCULOSKELETAL: gentleman the extrem ities appear normal.There is no obvious muscle wasting. Reflexes were diminished in all areas but symmetrical. Speech was clear. The quadriceps were tender to massage, joints appeared normal with normal range of motion LYMPH NODES: no enlarged lymph no josefina,spleen normal RECTAL EXAM: not examined PSYCH: alert, oriented: moo d depressed ORAL CAVITY: normal, unremarkable Consultation Request Notes Referral Date Referring Provider Referred Provider Not es 03/06/2025 Will Hayes Mohammed Consult and Treat worsening muscle pain weakness Questioning Muscle Disorder Questioning Neuropathy
--- OUTSIDE RECORDS SUMMARY | 2025-06-29 08:20 | XMS_ITS | Patient Health Record ---
Author Organization Will Hayes III, MD Address [address] [place] [address] [place] [address] Care Team Providers Care Phlebotomist Lab Assistant Name Role Phone Dr. Will Hayes III [...] Acid Reviewed date:11/07/2024 07:30:32 PM Interpretation: Performing Lab:[facility], [place], [address] [place] [phone] Notes/Report: Uric Acid 5.1 3.4-7.0 mg/dL Vitamin D 25-OH Total Reviewed date:11/07/2024 07:30:32 PM Interpretation: Performing Lab:[facility], [place], [address] [place] [phone] Notes/Report: Vitamin D 25-OH Total 47.4 >30 [...] confirmed with another method such as LC-MS/MS. Complete Blood Count Auto Di ff Reviewed date:07/29/2024 07:49:54 PM Interpretation: Performing Lab:[facility], [place], [address] [place] [phone] Notes/Report: White Blood Count 7.2 4.8-10.8 X10*3/uL Red Blood Count 4.85 4.60-5.80 X10*6/uL Hemoglobin 14.9 14.0-18.0 g/dl Hematocrit 44.4 42.0-52.0 % Mean Corpuscular Volume 91.5 80.0-98.0 fL Mean Corpuscular Hemoglobin 30.7 27.0-33.0 pg Mean Corpuscular HGB Conc 33.6 31.0-36.0 g/dl Red Cell Distribution Width 14.2 11.0-16.0 % Platelet Count 252 160-400 X10*3/uL Mean Platelet Volume 9.0 9.4-12.4 fL Neutrophils Percent Auto 66.6 45-73 % Imm Gran Pct Auto 0.3 0.0-0.4 % Lymphocytes Percent Auto 24.5 20-40 % Monocytes Percent Auto 6.9 2-11 % Eosinophils Percent Auto 1.4 0-4 % Basophils Percent Auto 0.3 0-2 % NRBC Pct Auto 0.0 0.0-0.2 /100WBC Neutrophils Absolute Auto 4.8 2.0-8.3 x10*3/uL Imm Gran Abs Auto 0.02 0.00-0.03 X10*3/uL Lymphocytes Absolute Auto 1.8 1.2-4.9 X10*3/uL Monocytes Absolute Auto 0.5 0.1-1.2 X10*3/uL Eosinophils Absolute Auto 0.1 0.0-0.4 X10*3/uL Basophils Absolute Auto 0.0 0.0-0.2 X10*3/uL NRBC Abs Auto 0.000 0.0-0.012 X10*3/uL Comprehensive Met. Panel Reviewed date:07/29/2024 07:49:54 PM Interpretation: Performing Lab:[facility], [place], [address] [place] [phone] Notes/Report: Sodium 143 135-145 mmol/L Potassium 4.0 3.3-5.1 mmol/L Chloride 107 96-108 mmol/L Carbon Dioxide 28 22-29 mmol/L Anion Gap 12 12-20 Blood Urea Nitrogen 13 9-16 mg/dL Creatinine 0.87 0.5-1.4 mg/dL Creatinine Clr Calc Pharmacy 99.1 eGFR (calculated from the MDRD study equation) and eCrCl (calculated from the Cockcroft-Gault equation) are based on different parameters and may not yield comparable results. If eCrCl result is absurd, please check patient's height/weight. Estimated Glomerular Filt Rate > 60 Chronic Kidney Disease: Estimated GFR < 60 mL/min/1.73m2 Severe Kidney Disease: Estimated GFR < 15 mL/min/1.73m2 Glucose Random 87 60-115 mg/dL Calcium 9.4 8.4-10.2 mg/dL Bilirubin Total 0.5 0.0-1.0 mg/dL Aspartate Amino Transferase 22 5-37 U/L Alanine Aminotransferase 20 0-40 U/L Total Protein 6.5 6.5-8.0 g/dL Albumin Level 4.2 3.5-5.0 g/dL Alkaline Phosphatase 56 39-117 U/L Beta-2 Microglobulin, Serum Reviewed date:07/29/2024 07:49:54 PM Interpretation: Performing Lab:[facility], [place], [address] [place] [phone] Notes/Report: Beta-2 Microglobulin, Serum 1.42 < OR = 2.51 mg/L THIS TEST WAS PERFORMED AT: [facility] [address] [place] [phone] ULISES HERZOG MD [place]/Lambda Lt Ch,Free w ra t Reviewed date:07/29/2024 07:49:54 PM Interpretation: Performing Lab:[facility], [place], [address] [place] [phone] Notes/Report: [place] Light Chain, Free Serum 5.5 3.3-19.4 mg/L Lambda Light Chain, Free Serum 5.1 5.7-26.3 mg/L [place]/Lambda Lt Ch Free Ratio 1.08 0.26-1.65 Free kappa/lambda ratio in serum of normal individuals is 0.26-1.65. Excess production of free kappa or lambda chains can alter this ratio. Monoclonal free light chains are found in serum of patients with multiple myeloma, Waldenstrom's macroglobulinemia, mu-heavy chain disease, primary amyloidosis, light chain deposition disease, monoclonal gammopathy of undetermined significance, and lymphoproliferative disorders. Measurement of free light chain concentration in serum is useful for diagnosis, prognosis, monitoring disease activity and following response to therapy of these disorders. THIS TEST WAS PERFORMED AT: [facility] [address] [place] [phone] ULISES HERZOG MD Immunofixation Pnl, Serum Reviewed date:07/29/2024 07:49:54 PM Interpretation: Performing Lab:[facility], [place], [address] [place] [phone] Notes/Report: IgG 130 192-0625 mg/dL IgA 86 47-310 mg/dL IgM 66 50-300 mg/dL THIS TEST WAS PERFORMED AT: [facility] [address] [place] [phone] ULISES HERZOG MD Immunofixation Interpretation SEE NOTE No monoclonal protei ns detected. XR DEXA axial skeleton Reviewed date:08/21/2024 08:58:38 AM Interpretation: Performing Lab: Notes/Report: [address] [place] [address] Mammography Report Signed Patient: Zak Sumner MR#: [id number] : 1965 Acct:[id number] Age/Sex: 59 / M ADM Date: 08/14/24 Loc: MAMMO Attending Dr: Selina Corcoran MD Ordering Physician: Selina Corcoran MD Results: Date of Service: 08/14/24 Follow Up: Procedure(s): XR DEXA axial skeleton Accession Number(s): [id number] cc: Will Hayes MD; Selina Corcoran MD EXAMINATION: Dual-Energy X-ray Absorptiometry - Bone Density Study HISTORY: Estrogen deficiency TECHNIQUE: Bustle Dual energy absorptiometry (DEXA) of the lumbar spine, total left hip, and femoral neck was performed. COMPARISON: There are no prior studies for comparison. FINDINGS: The bone mineral density of the lumbar spine is 1.361 with a T-score of 1.2, and a Z-score of 1.3. The bone mineral density of the left total hip is 1.081 with a T-score of -0.1, and a Z-score of 0.2. The bone mineral density of the left femoral neck is 0.952 with a T-score of -0.9, and a Z-score of -0.1. MM/XR DEXA axial skeleton IMPRESSION: Based on bone mineral density, and according to World Health Organization (WHO) criteria, the diagnosis is consistent with normal bone mineral density. All bone density values are in grams per centimeter squared. At this facility, the least significant change in BMD with 95% confidence is 0.022 at the lumbar spine, 0.027 at the hip, and 0.023 at the distal 1/3 radius. Electronically signed by: Will Gallardo MD 08/18/2024 09:50 AM EST Dictated By: Will Gallardo MD Signed By: <Electronically signed by Will Gallardo MD in OV> 08/18/24 0950 DD/ 1110 TD/TT: 08/14/24 1140 Anesthesiologist Assistant Certified: [facility] [address] [place] [address] Mammography Report Signed Patient: Zak Sumner MR#: [id number] : 1965 Acct:[id number] Age/Sex: 59 / M ADM Date: 08/14/24 Loc: [facility] Attending Dr: Selina Corcoran MD Ordering Physician: Selina Corcoran MD Results: Date of Service: 08/14/24 Follow Up: Procedure(s): XR DEX A axial skeleton Accession Number(s): [id number] cc: Will Hayes MD; Selina Corcoran MD EXAMINATION: Dual-Energy X-ray Absorptiometry - Bone Density Study HISTORY: Estrogen deficiency TECHNIQUE: Bustle Dual energy absorptiometry (DEXA) of the lumbar spine, total left hip, and femoral neck was performed. COMPARISON: There ar e no prior studies for comparison. FINDINGS: The bone mineral density of the lumbar spine is 1.361 with a T-score of 1.2, and a Z-score o f 1.3. The bone mineral density of the left total hip is 1.081 with a T-score of -0.1, and a Z-score of 0.2. The bone mineral density of the left femoral neck is 0.952 with a T-score of -0.9, and a Z-score of -0.1. _ MM/XR DEXA axial skeleton IMPRESSION: Based on bone minera l density, and according to World Health Organization (WHO) criteria, the diagnosis is consistent with normal bone mineral density. All bone density values are in grams per centimeter squared. At this facility, th e least significant change in BMD with 95% confidence is 0.022 at the lumbar spine, 0.027 at the hip, and 0.023 at the distal 1/3 radius. Electronically aubree d by: Will Gallardo MD 08/18/2024 09:50 AM [facility] Dictated By: Will Gallardo MD Signed By: <Electronically signed by Will Gallardo MD in [place]> 08/18/24 0950 DD/ 1110 TD/TT: 08/14/24 1140 Anesthesiologist Assistant Certified: Complete Blood Count Auto Di ff Reviewed date:11/07/2024 07:30:32 PM Interpretation: Performing Lab:[facility], [place], [address] [place] [phone] Notes/Report: White Blood Count 5.4 4.8-10.8 X10*3/uL Red Blood Count 4.67 4.60-5.80 X10*6/uL Hemoglobin 14.1 14.0-18.0 g/dl Hematocrit 43.8 42.0-52.0 % Mean Corpuscular Volume 93.8 80.0-98.0 fL Mean Corpuscular Hemoglobin 30.2 27.0-33.0 pg Mean Corpuscular HGB Conc 32.2 31.0-36.0 g/dl Red Cell Distribution Width 14.6 11.0-16.0 % Platelet Count 224 160-400 X10*3/uL Mean Platelet Volume 9.9 9.4-12.4 fL Neutrophils Percent Auto 59.7 45-73 % Imm Gran Pct Auto 0.2 0.0-0.4 % Lymphocytes Percent Auto 25.0 20-40 % Monocytes Percent Auto 12.5 2-11 % Eosinophils Percent Auto 2.0 0-4 % Basophils Percent Auto 0.6 0-2 % NRBC Pct Auto 0.0 0.0-0.2 /100WBC Neutrophils Absolute Auto 3.3 2.0-8.3 x10*3/uL Imm Gran Abs Auto 0.01 0.00-0.03 X10*3/uL Lymphocytes Absolute Auto 1.4 1.2-4.9 X10*3/uL Monocytes Absolute Auto 0.7 0.1-1.2 X10*3/uL Eosinophils Absolute Auto 0.1 0.0-0.4 X10*3/uL Basophils Absolute Auto 0.0 0.0-0.2 X10*3/uL NRBC Abs Auto 0.000 0.0-0.012 X10*3/uL Erythrocyte Sedimentation Ra te Reviewed date:11/07/2024 07:30:32 PM Interpretation: Performing Lab:[address] [phone] Notes/Report: Erythrocyte Sedimentation Rate 11 0-15 MM/HR Patients with polycythemia and many hemoglobin abnormalities may have depressed sed rates whereas patients with anemia may have elevated sed rates. Comprehensive Met. Panel Reviewed date:11/07/2024 07:30:32 PM Interpretation: Performing Lab:[address] [phone] Notes/Report: Sodium 144 135-145 mmol/L Potassium 4.2 3.3-5.1 mmol/L Chloride 112 96-108 mmol/L Carbon Dioxide 27 22-29 mmol/L Anion Gap 9 12-20 Blood Urea Nitrogen 18 9-16 mg/dL Creatinine 0.76 0.5-1.4 mg/dL Estimated Glomerular Filt Rate > 60 Chronic Kidney Disease: Estimated GFR < 60 mL/min/1.73m2 Severe Kidney Disease: Estimated GFR < 15 mL/min/1.73m2 Glucose Random 76 60-115 mg/dL Calcium 9.2 8.4-10.2 mg/dL Bilirubin Total 0.4 0.0-1.0 mg/dL Aspartate Amino Transferase 22 5-37 U/L Alanine Aminotransferase 21 0-40 U/L Total Protein 6.4 6.5-8.0 g/dL Albumin Level 4.1 3.5-5.0 g/dL Alkaline Phosphatase 55 39-117 U/L C Reactive Protein Reviewed date:11/07/2024 07:30:32 PM Interpretation: Performing Lab:[facility], [place], [address] [place] [phone] Notes/Report: C Reactive Protein 4.09 < or = 0.50 mg/dL Prostate Specific Antigen Reviewed date:11/07/2024 07:30:32 PM Interpretation: Performing Lab:[facility], [place], [address] [place] [phone] Notes/Report: Prostate Specific Antigen 0.94 <0.05-4.0 ng/mL PSA methodology: Menjivar Alinity i Chemiluminescent Microparticle Immunoassay (CMIA) Immunofixation Pnl, Serum Reviewed date:11/14/2024 08:32:52 PM Interpretation: Performing Lab:[facility], [place], [address] [place] [phone] Notes/Report: IgG 906 467-2992 mg/dL IgA 82 47-310 mg/dL IgM 60 50-300 mg/dL THIS TEST WAS PERFORMED AT: [facility] [address] [phone] ULISES HERZOG MD Immunofixation Interpretation SEE NOTE No monoclonal protei ns detected. RON Reflex Titer and Pattern Reviewed date:11/14/2024 08:32:53 PM Interpretation: Performing Lab:[address] [phone] Notes/Report: Anti Nuclear Antibody Screen NEGATIVE NEGATIVE RON IFA is a first line screen for detecting the presence of up to approximately 150 autoantibodies in various autoimmune diseases. A negative RON IFA result suggests an RON-associated autoimmune disease is not present at this time, but is not definitive. If there is high clinical suspicion for Sjogren's syndrome, testing for anti-SS-A/Ro antibody should be considered. Anti-Romy-1 antibody should be considered for clinically suspected inflammatory myopathies. AC-0: Negative International Consensus on RON Patterns (https://doi.org/10.1515/ jqjv-4217-2563) For additional information, please refer to http://education.iGo/faq/HXQ068 (This link is being provided for informational/ educational purposes only.) THIS TEST WAS PERFORMED AT: [facility] [address] [place] [phone] ULISES HERZOG MD Anti Nuclear Antibody Titer TNP Anti Nuclear Antibody Pattern TNP RON Titer 2 TNP RON Pattern 2 TNP RON Titer 3 TNP RON Pattern 3 TNP Rheumatoid Factor Reviewed date:11/07/2024 07:30:32 PM Interpretation: Performing Lab:[facility], [place], [address] [place] [phone] Notes/Report: Rheumatoid Factor < 13.0 <15.0 IU/mL Complete Blood Count Auto Di ff Reviewed date:12/09/2024 05:37:14 AM Interpretation: Performing Lab:[facility], [place], [address] [place] [phone] Notes/Report: White Blood Count 4.7 4.8-10.8 X10*3/uL Red Blood Count 4.98 4.60-5.80 X10*6/uL Hemoglobin 15.2 14.0-18.0 g/dl Hematocrit 45.9 42.0-52.0 % Mean Corpuscular Volume 92.2 80.0-98.0 fL Mean Corpuscular Hemoglobin 30.5 27.0-33.0 pg Mean Corpuscular HGB Conc 33.1 31.0-36.0 g/dl Red Cell Distribution Width 14.3 11.0-16.0 % Platelet Count 197 160-400 X10*3/uL Mean Platelet Volume 9.3 9.4-12.4 fL Neutrophils Percent Auto 45.0 45-73 % Imm Gran Pct Auto 0.2 0.0-0.4 % Lymphocytes Percent Auto 42.2 20-40 % Monocytes Percent Auto 11.1 2-11 % Eosinophils Percent Auto 0.9 0-4 % Basophils Percent Auto 0.6 0-2 % NRBC Pct Auto 0.0 0.0-0.2 /100WBC Neutrophils Absolute Auto 2.1 2.0-8.3 x10*3/uL Imm Gran Abs Auto 0.01 0.00-0.03 X10*3/uL Lymphocytes Absolute Auto 2.0 1.2-4.9 X10*3/uL Monocytes Absolute Auto 0.5 0.1-1.2 X10*3/uL Eosinophils Absolute Auto 0.0 0.0-0.4 X10*3/uL Basophils Absolute Auto 0.0 0.0-0.2 X10*3/uL NRBC Abs Auto 0.000 0.0-0.012 X10*3/uL Comprehensive Met. Panel Reviewed date:12/09/2024 05:37:14 AM Interpretation: Performing Lab:[facility], [place], [address] [place] [phone] Notes/Report: Sodium 142 135-145 mmol/L Potassium 4.7 3.3-5.1 mmol/L Chloride 108 96-108 mmol/L Carbon Dioxide 28 22-29 mmol/L Anion Gap 11 12-20 Blood Urea Nitrogen 19 9-16 mg/dL Creatinine 0.96 0.5-1.4 mg/dL Creatinine Clr Calc Pharmacy 89.8 eGFR (calculated from the MDRD study equation) and eCrCl (calculated from the Cockcroft-Gault equation) are based on different parameters and may not yield comparable results. If eCrCl result is absurd, please check patient's height/weight. Estimated Glomerular Filt Rate > 60 Chronic Kidney Disease: Estimated GFR < 60 mL/min/1.73m2 Severe Kidney Disease: Estimated GFR < 15 mL/min/1.73m2 Glucose Random 94 60-115 mg/dL Calcium 9.4 8.4-10.2 mg/dL Bilirubin Total 0.4 0.0-1.0 mg/dL Aspartate Amino Transferase 26 5-37 U/L Alanine Aminotransferase 25 0-40 U/L Total Protein 6.7 6.5-8.0 g/dL Albumin Level 4.3 3.5-5.0 g/dL Alkaline Phosphatase 58 39-117 U/L Beta-2 Microglobulin, Serum Reviewed date:12/14/2024 07:52:54 PM Interpretation: Performing Lab:[facility], [place], [address] [place] [phone] Notes/Report: Beta-2 Microglobulin, Serum 2.48 < OR = 2.51 mg/L THIS TEST WAS PERFORMED AT: [facility] [address] [place] [phone] ULISES HERZOG MD [place]/Lambda Lt Ch,Free w ra t Reviewed date:12/14/2024 07:52:55 PM Interpretation: Performing Lab:[facility], [place], [address] [place] [phone] Notes/Report: [place] Light Chain, Free Serum 10.0 3.3-19.4 mg/L Lambda Light Chain, Free Serum 8.8 5.7-26.3 mg/L [place]/Lambda Lt Ch Free Ratio 1.14 0.26-1.65 Free kappa/lambda ratio in serum of normal individuals is 0.26-1.65. Excess production of free kappa or lambda chains can alter this ratio. Monoclonal free light chains are found in serum of patients with multiple myeloma, Waldenstrom's macroglobulinemia, mu-heavy chain disease, primary amyloidosis, light chain deposition disease, monoclonal gammopathy of undetermined significance, and lymphoproliferative disorders. Measurement of free light chain concentration in serum is useful for diagnosis, prognosis, monitoring disease activity and following response to therapy of these disorders. THIS TEST WAS PERFORMED AT: [facility] [address] [place] [phone] ULISES HERZOG MD Immunofixation Pnl, Serum Reviewed date:12/14/2024 07:52:55 PM Interpretation: Performing Lab:[facility], [place], [address] [place] [phone] Notes/Report: IgG 325 453-5642 mg/dL IgA 99 47-310 mg/dL IgM 61 50-300 mg/dL THIS TEST WAS PERFORMED AT: [facility] [address] [place] [phone] ULISES HERZOG MD Immunofixation Interpretation SEE NOTE Normal pattern. No monoclonal proteins detected. Complete Blood Count Auto Di ff Reviewed date:03/15/2025 07:44:56 PM Interpretation: Performing Lab:[facility], [place], [address] [place] [phone] Notes/Report: White Blood Count 9.3 4.8-10.8 X10*3/uL Red Blood Count 4.17 4.60-5.80 X10*6/uL Hemoglobin 12.3 14.0-18.0 g/dl Hematocrit 36.3 42.0-52.0 % Mean Corpuscular Volume 87.1 80.0-98.0 fL Mean Corpuscular Hemoglobin 29.5 27.0-33.0 pg Mean Corpuscular HGB Conc 33.9 31.0-36.0 g/dl Red Cell Distribution Width 13.8 11.0-16.0 % Platelet Count 447 160-400 X10*3/uL Mean Platelet Volume 8.8 9.4-12.4 fL Neutrophils Percent Auto 74.5 45-73 % Imm Gran Pct Auto 0.4 0.0-0.4 % Lymphocytes Percent Auto 13.6 20-40 % Monocytes Percent Auto 9.0 2-11 % Eosinophils Percent Auto 2.0 0-4 % Basophils Percent Auto 0.5 0-2 % NRBC Pct Auto 0.0 0.0-0.2 /100WBC Neutrophils Absolute Auto 6.9 2.0-8.3 x10*3/uL Imm Gran Abs Auto 0.04 0.00-0.03 X10*3/uL Lymphocytes Absolute Auto 1.3 1.2-4.9 X10*3/uL Monocytes Absolute Auto 0.8 0.1-1.2 X10*3/uL Eosinophils Absolute Auto 0.2 0.0-0.4 X10*3/uL Basophils Absolute Auto 0.1 0.0-0.2 X10*3/uL NRBC Abs Auto 0.000 0.0-0.012 X10*3/uL Erythrocyte Sedimentation Ra te Reviewed date:03/15/2025 07:44:56 PM Interpretation: Performing Lab:[facility], [place], [address] [place] [phone] Notes/Report: Erythrocyte Sedimentation Rate 94 0-15 MM/HR Patients with polycythemia and many hemoglobin abnormalities may have depressed sed rates whereas patients with anemia may have elevated sed rates. Comprehensive Met. Panel Reviewed date:03/15/2025 07:44:56 PM Interpretation: Performing Lab:[address] [phone] Notes/Report: Sodium 141 135-145 mmol/L Potassium 4.2 3.3-5.1 mmol/L Chloride 108 96-108 mmol/L Carbon Dioxide 26 22-29 mmol/L Anion Gap 11 12-20 Blood Urea Nitrogen 11 9-16 mg/dL Creatinine 0.75 0.5-1.4 mg/dL Creatinine Clr Calc Pharmacy 114.9 eGFR (calculated from the MDRD study equation) and eCrCl (calculated from the Cockcroft-Gault equation) are based on different parameters and may not yield comparable results. If eCrCl result is absurd, please check patient's height/weight. Estimated Glomerular Filt Rate > 60 Chronic Kidney Disease: Estimated GFR < 60 mL/min/1.73m2 Severe Kidney Disease: Estimated GFR < 15 mL/min/1.73m2 Glucose Random 92 60-115 mg/dL Calcium 9.0 8.4-10.2 mg/dL Bilirubin Total 0.4 0.0-1.0 mg/dL Aspartate Amino Transferase 19 5-37 U/L Alanine Aminotransferase 16 0-40 U/L Total Protein 7.0 6.5-8.0 g/dL Albumin Level 3.8 3.5-5.0 g/dL Alkaline Phosphatase 60 39-117 U/L Lactate Dehydrogenase Reviewed date:03/15/2025 07:44:56 PM Interpretation: Performing Lab:[facility], [place], [address] [place] [phone] Notes/Report: Lactate Dehydrogenase 119 118-273 U/L Creatine Kinase Total Reviewed date:03/15/2025 07:44:56 PM Interpretation: Performing Lab:[facility], [place], [address] [place] [phone] Notes/Report: Creatine Kinase Total 90 38-174 U/L Beta-2 Microglobulin, Serum Reviewed date:03/15/2025 07:44:56 PM Interpretation: Performing Lab:[facility], [place], [address] [place] [phone] Notes/Report: Beta-2 Microglobulin, Serum 2.02 < OR = 2.51 mg/L THIS TEST WAS PERFORMED AT: [facility] [address] [place] [phone] ULISES HERZOG MD TSH reflex Free T4 Reviewed date:03/15/2025 07:44:56 PM Interpretation: Performing Lab:[facility], [place], [address] [place] [phone] Notes/Report: TSH reflex Free T4 0.75 0.32-4.0 uIU/mL [place]/Lambda Lt Ch,Free w ra t Reviewed date:03/15/2025 07:44:56 PM Interpretation: Performing Lab:[facility], [place], [address] [place] [phone] Notes/Report: [place] Light Chain, Free Serum 16.1 3.3-19.4 mg/L Lambda Light Chain, Free Serum 17.5 5.7-26.3 mg/L [place]/Lambda Lt Ch Free Ratio 0.92 0.26-1.65 Free kappa/lambda ratio in serum of normal individuals is 0.26-1.65. Excess production of free kappa or lambda chains can alter this ratio. Monoclonal free light chains are found in serum of patients with multiple myeloma, Waldenstrom's macroglobulinemia, mu-heavy chain disease, primary amyloidosis, light chain deposition disease, monoclonal gammopathy of undetermined significance, and lymphoproliferative disorders. Measurement of free light chain concentration in serum is useful for diagnosis, prognosis, monitoring disease activity and following response to therapy of these disorders. THIS TEST WAS PERFORMED AT: [facility] [address] [place] [phone] ULISES HERZOG MD Immunofixation Pnl, Serum Reviewed date:03/15/2025 07:44:56 PM Interpretation: Performing Lab:[facility], [place], [address] [place] [phone] Notes/Report: IgG 442 974-4179 mg/dL IgA 238 47-310 mg/dL IgM 75 50-300 mg/dL THIS TEST WAS PERFORMED AT: [facility] [address] [place] [phone] ULISES HERZOG MD Immunofixation Interpretation SEE NOTE No monoclonal protei ns detected. RON Reflex Titer and Pattern Reviewed date:04/07/2025 05:03:04 AM Interpretation: Performing Lab:[facility], [place], [address] [place] [phone] Notes/Report: Anti Nuclear Antibody Screen NEGATIVE NEGATIVE RON IFA is a first line screen for detecting the presence of up to approximately 150 autoantibodies in various autoimmune diseases. A negative RON IFA result suggests an RON-associated autoimmune disease is not present at this time, but is not definitive. If there is high clinical suspicion for Sjogren's syndrome, testing for anti-SS-A/Ro antibody should be considered. Anti-Romy-1 antibody should be considered for clinically suspected inflammatory myopathies. AC-0: Negative International Consensus on RON Patterns (https://doi.org/10.1515/ fpoz-8124-4142) For additional information, please refer to http://education.iGo/faq/LXB208 (This link is being provided for informational/ educational purposes only.) THIS TEST WAS PERFORMED AT: [facility] [address] [place] [phone] ULISES HERZOG MD Anti Nuclear Antibody Titer TNP Anti Nuclear Antibody Pattern TNP RON Titer 2 TNP RON Pattern 2 TNP RON Titer 3 TNP RON Pattern 3 TNP Complete Blood Count Auto Di ff Reviewed date:05/16/2025 06:22:57 AM Interpretation: Performing Lab:[facility], [place], [address] [place] [phone] Notes/Report: White Blood Count 5.2 4.8-10.8 X10*3/uL Red Blood Count 4.84 4.60-5.80 X10*6/uL Hemoglobin 14.2 14.0-18.0 g/dl Hematocrit 42.2 42.0-52.0 % Mean Corpuscular Volume 87.2 80.0-98.0 fL Mean Corpuscular Hemoglobin 29.3 27.0-33.0 pg Mean Corpuscular HGB Conc 33.6 31.0-36.0 g/dl Red Cell Distribution Width 16.7 11.0-16.0 % Platelet Count 246 160-400 X10*3/uL Mean Platelet Volume 9.6 9.4-12.4 fL Neutrophils Percent Auto 52.8 45-73 % Imm Gran Pct Auto 0.4 0.0-0.4 % Lymphocytes Percent Auto 37.8 20-40 % Monocytes Percent Auto 7.4 2-11 % Eosinophils Percent Auto 0.8 0-4 % Basophils Percent Auto 0.8 0-2 % NRBC Pct Auto 0.0 0.0-0.2 /100WBC Neutrophils Absolute Auto 2.7 2.0-8.3 x10*3/uL Imm Gran Abs Auto 0.02 0.00-0.03 X10*3/uL Lymphocytes Absolute Auto 2.0 1.2-4.9 X10*3/uL Monocytes Absolute Auto 0.4 0.1-1.2 X10*3/uL Eosinophils Absolute Auto 0.0 0.0-0.4 X10*3/uL Basophils Absolute Auto 0.0 0.0-0.2 X10*3/uL NRBC Abs Auto 0.000 0.0-0.012 X10*3/uL Erythrocyte Sedimentation Ra te Reviewed date:05/16/2025 06:22:57 AM Interpretation: Performing Lab:[facility], [place], [address] [place] [phone] Notes/Report: Erythrocyte Sedimentation Rate 5 0-15 MM/HR Patients with polycythemia and many hemoglobin abnormalities may have depressed sed rates whereas patients with anemia may have elevated sed rates. Comprehensive Met. Panel Reviewed date:05/16/2025 06:22:57 AM Interpretation: Performing Lab:[address] [address] Notes/Report: Sodium 143 135-145 mmol/L Potassium 4.2 3.3-5.1 mmol/L Chloride 108 96-108 mmol/L Carbon Dioxide 30 22-29 mmol/L Anion Gap 9 12-20 Blood Urea Nitrogen 15 9-16 mg/dL Creatinine 0.79 0.5-1.4 mg/dL Creatinine Clr Calc Pharmacy 107.7 eGFR (calculated from the MDRD study equation) and eCrCl (calculated from the Cockcroft-Gault equation) are based on different parameters and may not yield comparable results. If eCrCl result is absurd, please check patient's height/weight. Estimated Glomerular Filt Rate > 60 Chronic Kidney Disease: Estimated GFR < 60 mL/min/1.73m2 Severe Kidney Disease: Estimated GFR < 15 mL/min/1.73m2 Glucose Random 66 60-115 mg/dL Calcium 9.5 8.4-10.2 mg/dL Bilirubin Total 0.7 0.0-1.0 mg/dL Aspartate Amino Transferase 24 5-37 U/L Alanine Aminotransferase 24 0-40 U/L Total Protein 6.9 6.5-8.0 g/dL Albumin Level 4.5 3.5-5.0 g/dL Alkaline Phosphatase 55 39-117 U/L Lactate Dehydrogenase Reviewed date:05/16/2025 06:22:57 AM Interpretation: Performing Lab:[facility], [place], [address] [place] [phone] Notes/Report: Lactate Dehydrogenase 166 118-273 U/L Creatinine GFR POC Reviewed date:05/22/2025 05:17:50 PM Interpretation: Performing Lab:[facility], [place], [address] [place] [phone] Notes/Report: [id number] 0.91 >60 1504 HO.BUSHJON Creatinine POC 0.9 0.5-1.4 mg/dL GFR POC > 60 Chronic Kidney Disease: Estimated GFR < 60 mL/min/1.73m2 Severe Kidney Disease: Estimated GFR < 15 mL/min/1.73m2 CT chest w con Reviewed date:05/16/2025 06:22:57 AM Interpretation: Performing Lab: Notes/Report: [address] [address] [address] Scan Report Signed Patient: Zak Sumner MR#: [id number] : 1965 Acct:[id number] Age/Sex: 60 / M ADM Date: 05/11/25 Loc: HO.CT Attending Dr: Selina Corcoran MD Ordering Physician: Selina Corcoran MD Date of Service: 05/11/25 Procedure(s): CT chest w IV con Accession Number(s): [id number] cc: Will Hayes MD; Selina Corcoran MD Report Number: [id number]: Total DLP = 167.00 mGy-cm Reason for Exam: Suspicious 7 mm nodule noted on PET scan EXAMINATION: CT CHEST WITH IV CONTRAST INDICATION: Suspicious 7 mm nodule noted on PET scan COMPARISON: Comparison is made with the prior examination dated 02/15/2019. Correlation is also made with a PET/CT scan dated 07/18/2022. TECHNIQUE: Helical CT scan of the chest was performed following administration of intravenous contrast. Coronal and sagittal reformatted images were generated and reviewed. This CT exam was performed with one or more of the following dose reduction techniques: automated exposure control, adjustment of the mA and/or kV according to patient size, use of iterative reconstruction technique. DLP: 167 mGy-cm CHEST: THYROID: The thyroid is unremarkable. LUNGS: There is a 7 mm nodule in the posterior segment of the right upper lobe (series 4, image 61). This was not present on prior studies. The lungs are otherwise clear. MEDIASTINUM: There is no mediastinal lymphadenopathy. JESSICA: There is no hilar lymphadenopathy. CARDIOVASCULATURE: The heart is normal in size. There is no pericardial effusion. The thoracic aorta is normal in caliber. DEGREE OF CORONARY CALCIFICATION: mild PLEURA: There is no pleural effusion. No pneumothorax. MAIN AIRWAYS: The mainstem bronchi and proximal branches are patent. AXILLA: There is no axillary lymphadenopathy. BONES AND SOFT TISSUES: The bones are osteopenic. There are mild multiple spinal compression fractures. Findings are compatible with the patient's known history of multiple myeloma. UPPER ABDOMEN: Multiple cysts are noted in the liver measuring up to 1.7 cm in size. The visualized portions of the spleen and right adrenal gland are unremarkable. There is a 1.1 cm left adrenal nodule which was present on the prior PET/CT scan. CT/CT chest w IV con IMPRESSION: 1. 7 mm nodule in the posterior segment of the right upper lobe, new from prior studies. Findings are suspicious for a primary lung carcinoma or metastatic lesion, especially if it demonstrated increased activity on the outside PET/CT scan. Correlation with the outside PET/CT scan is recommended. 2. Stable 11 mm left adrenal nodule. Electronically signed by: Will Gallardo MD 05/12/2025 07:41 AM EDT Dictated By: Will Gallardo MD Signed By: <Electronically signed by Will Gallardo MD in OV> 05/12/25 0741 DD/ 1504 TD/TT: 05/11/25 1540 Anesthesiologist Assistant Certified: [address] [address] [address] Scan Report Signed Patient: Zak Sumner MR#: [id number] : 1965 Acct:[id number] Age/Sex: 60 / M ADM Date: 05/11/25 Loc: HO.CT Attending Dr: Selina Corcoran MD Ordering Physician: Selina Corcoran MD Date of Service: 05/11/25 Procedure(s): CT chest w IV con Accession Number(s): [id number] cc: Will Hayes MD; Selina Corcoran MD Report Number: [id number]: Total DLP = 167.00 mGy-cm Reason for Exam: Suspicious 7 mm nodule noted on PET scan EXAMINATION: CT CHES T WITH IV CONTRAST INDICATION: Suspicious 7 mm nodule noted on PET scan COMPARISON: Comparison is made with the prior examination dated 02/15/2019. Correlation is also made with a PET/CT scan dated 07/18/2022. TECHNIQUE: Helical C T scan of the chest was performed following administration of intravenous contrast. Coronal and sagittal reformatted images were generated and reviewed. This CT exam was performed with one or more of the following dose reduction techniques : automated exposure control, adjustment of the mA and/or kV according to patient size, use of iterative reconstruction technique. DLP: 167 mGy-cm CHEST: THYROID: The thyroid is unremarkable. LUNGS: There is a 7 mm nodule in the posterior segment of the right upper lobe (series 4 , image 61). This was not present on prior studies. The lungs are otherwise clear. MEDIASTINUM: There i s no mediastinal lymphadenopathy. JESSICA: There is no hilar lymphadenopathy. CARDIOVASCULATURE: The heart is normal in size. There is no pericardial effusion . The thoracic aorta is normal in caliber. DEGREE OF CORONARY CALCIFICATION: mild PLEURA: There is no pleural effusion. No pneumothorax. MAIN AIRWAYS: The mainstem bronchi and proximal branches are patent. AXILLA: There is no axillary lymphadenopathy. BONES AND SOFT TISSUES: The bones are osteopenic. There are mild multiple spinal compression fractures. Findings are compatible with the patient's known history of multiple myeloma. UPPER ABDOMEN: Multiple cysts are noted in the liver measuring up to 1.7 cm in size. The visualized portions of the spleen and right adrenal gland are unremarkable. There is a 1.1 cm left adrenal nodule which was present on the prior PET/CT scan. _ CT/CT chest w IV con IMPRESSION: 1. 7 mm nodule in th e posterior segment of the right upper lobe, new from prior studies. Findings are suspicious for a primary lung carcinoma or metastatic lesion, especially if it demonstrated increased activity on the outside PET/CT scan. Correlation with the outside PET/CT scan is recommended. 2. Stable 11 mm left adrenal nodule. Electronically aubree d by: Will Gallardo MD 05/12/2025 07:41 AM EDT Dictated By: Will Gallardo MD Signed By: <Electronically signed by Will Gallardo MD in OV> 05/12/25 0741 DD/ 1504 TD/TT: 05/11/25 1540 Anesthesiologist Assistant Certified: Reason For Referral Reason evaluate and treatme nt multiple joint pains in both hands and knees Diagnosis 1 Arthralgia, unspecif ied joint (M25.50) Referral Organization Will Hayes III, MD Referring Provider First Name Will Referring Provider Last Name Abigail Referring Provider Speciality Internal M edicine Referred Provider [facility] Referred Provider Specialty Rheumatology General Notes Nicole Davis CMA 11/10 09:56:32 AM > ref/demo/progress note/labs faxed to [facility], Nicole Davis CMA 11/18/2024 01:32:52 PM > I called [facility] dept and they stated they are not taking any new patients at this time until they get another physican in the practice. Per Dr Hayes patient to be [facility] pt made aware of this referral faxed to [facility], Callie Ramirez 12/01/2024 03:59:36 PM > Patient is calling to inform office he has made an appointment for 2025 @ 1:45pm patient is unsure of who he is seeing, AshleyCallie 12/26/2024 01:55:06 PM > Per Dr. Hayes he would like to try to get patient into [facility] but they are not booking new patients until 2025. Contacted [facility] they do not have any sooner appointments. They were able to place patient on a cancellation list and will contact the patient directly, patient was made aware. Referral Priority Routine Referral Appointment Date 2025 Reason Consult and Treat worsening muscle pain weakness Questioning Muscle Disorder Questioning Neuropathy Diagnosis 1 Muscle weakness (M62 .81) Diagnosis 2 Other myositis, unsp ecified site (M60.80) Referral Organization Will Hayes III, MD Referring Provider First Name Will Referring Provider Last Name Abigail Referring Provider Speciality Internal M edicine Referred Provider Doreen Aguilar Referred Provider Specialty Neurology General Notes Callie Ramirez 03/16/2025 09:37:56 AM > faxed referral with progress note Referral Priority Routine Referral Appointment Date 07/01/2025 Medications Medication SIG (Take, Route, Frequency, Duration) [...] application Externally Twice a day 02/01/2024 Active Calcium Carbonate Antacid 648 MG TAKE 1 TABLET BY MOUTH TWICE A DAY Oral Active Metoprolol Succinate ER 50 MG 1 tablet Orally Once a day Active Atorvastatin Calcium 20 MG Oral Active Valsartan 80 MG 1 tablet Orally Once a day Active Immunizations Vaccine Route Administration Date Status Comme nts COVID PFIZER Unknown 12/27/2021 Administered SHINGRIX Unknown 06/24/2021 Administered PCV20 Unknown 03/08/2022 Administered PCV13 Unknown 05/27/2021 Administered COVID PFIZER Unknown 11/13/2020 Administered Hepatitis B (20 and more) Unknown 12/06/2021 Administer ed COVID PFIZER Unknown 10/21/2020 Administered PCV13 Unknown 08/29/2021 Administered Decline: Influenza Unknown 05/11/2014 Refused Social History Tobacco Use: Social History Observation [...] Problem Status W/U Status Risk Notes Problem 2403225 Former smoker (Z87.891) Active confirmed He has a plan to prevent relapse in times of stress and illness. Problem 007853935 Overweight (E66.3) Active confirmed he has lost 7 pounds since his last visit. He has been steadily losing weight for several months. His appetite is poor and he cannot explain it. He has also been complaining of joint pain and now of weakness and muscle pain in his lower extremities which is being investigated. Problem 752053587 Lumbar radiculopathy (M54.16) Active confirmed Therapy for the joint pains. After the blood work if necessary prednisone will be considered. I will consult with the oncologist prior to this. Problem 249356080 Enlarged prostate with lower urinary tract symptoms (N40.1) Active confirmed He rises from sleep once or twice a night to urinate. We discussed lifestyle modifications asymptomatic to reduce nocturia. Problem Allergy to penicillin (71338554) Allergy status to penicillin (Z88.0) Active confirmed Problem 04331484 Essential hypertension (I10) Active confirmed His blood pressure has been well controlled. No change in the regimen as needed. time. Problem 44791689 Hyperlipidemia, unspecified hyperlipidemia (E78.5) Active confirmed his lipids have been stable. They will be checked periodically. No change in his regimen was made today. Problem 2380593 Inflammatory arthritis (M19.90) Active confirmed He was continued on his current medications. He may need physical therapy. Images will be obtained if he does not improve rapidly. Problem 34502348 Migraine (G43.909) Active confirmed His migraine headaches have resolved. Problem Multiple myeloma (317364979) Multiple myeloma, remission status unspecified (C90.00) Active confirmed He is stable in remission. He will maintain in the care of medical oncology [facility] as well as the [facility]. The myeloma appears to be in remission still. 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 It seems to be compensated at this time. There is no peripheral edema or rales. His neck veins are not distended. Problem 82441739 Myalgia (M79.10) Active confirmed a new complaint today is aching muscles and weakness in his legs with improvement in the joint pains in his upper extremities. I have ordered thyroid function tests and a CPK and an LDH. I have requested a neurology consultation as to the etiology. Problem 927205643 Hx of stem cell transplant (Z94.84) Active confirmed He has relapsed since. Continues on treatment. Problem 86494241 Multiple joint pain (M25.50) Active confirmed He was continued on the prednisone although he has had no relief so far. Is going to see rheumatology Vital Signs Heart Rate 88 /min 03/06/2025 Temperature 97.0 degrees Fahrenheit 03/06/2025 Blood pressure diastolic 74 mm Hg 03/06/2025 Height 73 in 03/06/2025 Blood pressure systolic 104 mm Hg 03/06/2025 Weight 185 lbs 03/06/2025 BMI 24.41 kg/m2 03/06/2025 Encounters Encounter Location Date Provider Diagnosis Will Hayes III, MD [address] [place] [address] [place] [phone] 11/06/2024 Will Hayes Multiple myeloma, remission status unspecified C90.00 ; Multiple joint pain M25.50 ; Enlarged prostate with lower urinary tract symptoms N40.1 ; Lumbar radiculopathy M54.16 ; Hyperlipidemia, unspecified hyperlipidemia E78.5 ; Overweight E66.3 ; Migraine G43.909 and Essential hypertension I10 Will Hayes III, MD [address] [place] [address] [place] [phone] 12/26/2024 Will Hayes Multiple myeloma, remission status unspecified C90.00 ; Multiple joint pain M25.50 ; Lumbar radiculopathy M54.16 ; Hyperlipidemia, unspecified hyperlipidemia E78.5 ; Enlarged prostate with lower urinary tract symptoms N40.1 ; Overweight E66.3 ; Migraine G43.909 ; Hx of stem cell transplant Z94.84 and Other cardiomyopathy I42.8 Will Hayes III, MD [address] [place] [address] [place] [address] 01/05/2025 Will Porterne Multiple myeloma, remission status unspecified C90.00 ; Overweight E66.3 ; Lumbar radiculopathy M54.16 and Essential hypertension I10 Will Hayes III, MD [address] [place] [address] [place] [address] 01/19/2025 Will Porterne Multiple myeloma, remission status unspecified C90.00 ; Multiple joint pain M25.50 ; Hx of stem cell transplant Z94.84 ; Other cardiomyopathy I42.8 and Essential hypertension I10 Will Hayes III, MD [address] [place] [address] [place] [address] 02/04/2025 Will Porterne Multiple myeloma, remission status unspecified C90.00 ; Lumbar radiculopathy M54.16 ; Hyperlipidemia, unspecified hyperlipidemia E78.5 ; Enlarged prostate with lower urinary tract symptoms N40.1 ; Overweight E66.3 ; Migraine G43.909 ; Other cardiomyopathy I42.8 ; Essential hypertension I10 and Former smoker Z87.891 Will Hayes III, MD [address] [place] [address] [place] [address] 02/13/2025 Will Hayes Multiple myeloma, remission status unspecified C90.00 ; Overweight E66.3 ; Lumbar radiculopathy M54.16 ; Enlarged prostate with lower urinary tract symptoms N40.1 ; Essential hypertension I10 ; Former smoker Z87.891 and Inflammatory arthritis M19.90 Will Hayes III, MD [address] [place] [address] [place] [address] 03/06/2025 Will Hayes Multiple myeloma, remission status unspecified C90.00 ; Hyperlipidemia, unspecified hyperlipidemia E78.5 ; Overweight E66.3 ; Other cardiomyopathy I42.8 ; Myalgia M79.10 ; Migraine G43.909 ; Former smoker Z87.891 and Inflammatory arthritis M19.90 Will Hayes III, MD [address] [place] [address] [place] [address] 12/25/2024 Will Hayes III, MD [address] [place] [address] [address] [place] [address] 01/28/2025 Will Hayes III, MD [address] [place] [address] [address] [place] [address] 01/28/2025 Will Hayes Assessments Encounter Date Diagnosis (ICD Code) Assessment Notes Treat ment Notes Treatment Clinical Notes 11/06/2024 Multiple myeloma, remission status unspecified (ICD-10 - C90.00) Close observation and will continue. The remainder is a care of [facility] oncology [facility] as well as the [facility]. The myeloma appears to be in remission still. 11/06/2024 Multiple joint pain (ICD-10 - M25.50) He complains of pain in his right hand and wrist in both ears for one month. There were no physical findings. Conference of blood work including a rheumatoid factor and a sedimentation rate and a CRP and an RON have been ordered. If necessary a air crew officer will see him. 12/26/2024 Multiple myeloma, remission status unspecified (ICD-10 - C90.00) Close observation and will continue. The remainder is a care of [facility] as well as the [facility]. The myeloma appears to be in remission still. 12/26/2024 Multiple joint pain (ICD-10 - M25.50) He complains of pain in his right hand and wrist in both ears for one month. There were no physical findings.Comprehensi ve all blood work including a rheumatoid factor and a sedimentation rate and a CRP and an RON have been ordered. If necessary a air crew officer will see him. 01/05/2025 Overweight (ICD-10 - E66.3) His body mass index is slightly higher than 25. It does not represent a health problem. 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 01/05/2025 Multiple myeloma, remission status unspecified (ICD-10 - C90.00) Close observation and will continue. The remainder is a care of [facility] as well as the [facility]. The myeloma appears to be in remission still. 01/19/2025 Multiple myeloma, remission status unspecified (ICD-10 - C90.00) He is stable in remission. He will maintain in the care of [facility] as well as the [facility]. The myeloma appears to be in remission still. 01/19/2025 Multiple joint pain (ICD-10 - M25.50) He was continued on the prednisone although he has had no relief so far. Is going to see rheumatology 02/04/2025 Lumbar radiculopathy (ICD-10 - M54.16) Therapy for the joint pains. After the blood work if necessary prednisone will be considered. I will consult with the oncologist prior to this. 02/04/2025 Multiple myeloma, remission status unspecified (ICD-10 - C90.00) He is stable in remission. He will maintain in the care of [facility] as well as the [facility]. The myeloma appears to be in remission still. 02/13/2025 Overweight (ICD-10 - E66.3) His body mass index is slightly higher than 25. It does not represent a health problem. 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 02/13/2025 Multiple myeloma, remission status unspecified (ICD-10 - C90.00) He is stable in remission. He will maintain in the care of [facility] as well as the [facility]. The myeloma appears to be in remission still. 03/06/2025 Hyperlipidemia, unspecified hyperlipidemia (ICD-10 - E78.5) his lipids have been stable. They will be checked periodically. No change in his regimen was made today. 03/06/2025 Multiple myeloma, remission status unspecified (ICD-10 - C90.00) He is stable in remission. He will maintain in the care of [facility] as well as the [facility]. The myeloma appears to be in remission still. 11/06/2024 Enlarged prostate with lower urinary tract symptoms (ICD-10 - N40.1) He rises from sleep once or twice a night to urinate. We discussed lifestyle modifications asymptomatic to reduce nocturia. 12/26/2024 Lumbar radiculopathy (ICD-10 - M54.16) Therapy for the joint pains. After the blood work if necessary prednisone will be considered. I will consult with the oncologist prior to this. 01/05/2025 Lumbar radiculopathy (ICD-10 - M54.16) Therapy for the joint pains. After the blood work if necessary prednisone will be considered. I will consult with the oncologist prior to this. 01/19/2025 Hx of stem cell transplant (ICD-10 - Z94.84) He has relapsed since. Continues on treatment. 02/04/2025 Hyperlipidemia, unspecified hyperlipidemia (ICD-10 - E78.5) His lipids will be checked at appropriate intervals. 02/13/2025 Lumbar radiculopathy (ICD-10 - M54.16) Therapy for the joint pains. After the blood work if necessary prednisone will be considered. I will consult with the oncologist prior to this. 03/06/2025 Overweight (ICD-10 - E66.3) he has lost 7 pounds since his last visit. He has been steadily losing weight for several months. His appetite is poor and he cannot explain it. He has also been complaining of joint pain and now of weakness and muscle pain in his lower extremities which is being investigated. 11/06/2024 Lumbar radiculopathy (ICD-10 - M54.16) Therapy for the joint pains. After the blood work if necessary prednisone will be considered. I will consult with the oncologist prior to this. 12/26/2024 Hyperlipidemia, unspecified hyperlipidemia (ICD-10 - E78.5) His lipids will be checked at appropriate intervals. 01/05/2025 Essential hypertension (ICD-10 - I10) His blood pressure has been well controlled. No change in the regimen as needed. time. 01/19/2025 Other cardiomyopathy (ICD-10 - I42.8) His current ejection fraction is normal. He will be reevaluated periodically. He is no longer symptomatic. 02/04/2025 Enlarged prostate with lower urinary tract symptoms (ICD-10 - N40.1) He rises from sleep once or twice a night to urinate. We discussed lifestyle modifications asymptomatic to reduce nocturia. 02/13/2025 Enlarged prostate with lower urinary tract symptoms (ICD-10 - N40.1) He rises from sleep once or twice a night to urinate. We discussed lifestyle modifications asymptomatic to reduce nocturia. 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 It seems to be compensated at this time. There is no peripheral edema or rales. His neck veins are not distended. 11/06/2024 Hyperlipidemia, unspecified hyperlipidemia (ICD-10 - E78.5) His lipids will be checked at appropriate intervals. 12/26/2024 Enlarged prostate with lower urinary tract symptoms (ICD-10 - N40.1) He rises from sleep once or twice a night to urinate. We discussed lifestyle modifications asymptomatic to reduce nocturia. 01/19/2025 Essential hypertension (ICD-10 - I10) His blood pressure has been well controlled. No change in the regimen as needed. time. 02/04/2025 Overweight (ICD-10 - E66.3) His body mass index is slightly higher than 25. It does not represent a health problem. 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 02/13/2025 Essential hypertension (ICD-10 - I10) His blood pressure has been well controlled. No change in the regimen as needed. time. 03/06/2025 Myalgia (ICD-10 - M79.10) a new complaint today is aching muscles and weakness in his legs with improvement in the joint pains in his upper extremities. I have ordered thyroid function tests and a CPK and an LDH. I have requested a neurology consultation as to the etiology. 11/06/2024 Overweight (ICD-10 - E66.3) His body mass index is slightly higher than 25. It does not represent a health problem. 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 12/26/2024 Overweight (ICD-10 - E66.3) His body mass index is slightly higher than 25. It does not represent a health problem. 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 02/04/2025 Migraine (ICD-10 - G43.909) His migraine headaches have resolved. 02/13/2025 Former smoker (ICD-10 - Z87.891) He has a plan to prevent relapse in times of stress and illness. 03/06/2025 Migraine (ICD-10 - G43.909) His migraine headaches have resolved. 11/06/2024 Migraine (ICD-10 - G43.909) His migraine headaches have resolved. 12/26/2024 Migraine (ICD-10 - G43.909) His migraine headaches have resolved. 02/04/2025 Other cardiomyopathy (ICD-10 - I42.8) His current ejection fraction is normal. He will be reevaluated periodically. He is no longer symptomatic. 02/13/2025 Inflammatory arthritis (ICD-10 - M19.90) He was continued on his current medications. He may need physical therapy. Images will be obtained if he does not improve rapidly. 03/06/2025 Former smoker (ICD-10 - Z87.891) He has a plan to prevent relapse in times of stress and illness. 11/06/2024 Essential hypertension (ICD-10 - I10) His blood pressure is 102/77, well controlled. No change in the regimen as needed. time. 12/26/2024 Hx of stem cell transplant (ICD-10 - Z94.84) He has relapsed since. Continues on treatment. 02/04/2025 Essential hypertension (ICD-10 - I10) His blood pressure has been well controlled. No change in the regimen as needed. time. 03/06/2025 Inflammatory arthritis (ICD-10 - M19.90) He was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
--- OUTSIDE RECORDS SUMMARY | 2025-06-29 08:20 | XMS_ITS | Patient Health Record ---
Author Organization [facility] Address [address] [place] [address] Care Team Providers Care Card Setter Name Role Phone Will Hayes MD Primary Care Provider UnavailAnatoliy Sweeney Jr Unavailable Allergies Allergen (clinical drug ingredient) Drug/Non Drug Allergy documented on EMR Reaction Allergy Type Onset Date Status aspirin Aspirin Unknown Drug Allergy Active codeine Codeine Sulfate Unknown Drug Allergy A ctive ibuprofen Ibuprofen Unknown Drug Allergy Active Penicillin Unknown Drug Allergy Active Reason For Referral No Information Medications Medication SIG (Take, Route, Frequency, Duration) Notes Start Date End Date Status Fish Oil Active Multivitamin Active Colyte with Flavor Packs 240 GM Solution Reconstituted As directed Orally Over the specified time.; Duration: 1 day(s) Active Social History Social History Additional Details Category Social Info Options Details Miscellaneous: Marital status: single 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 [employer] Section Notes: no tobacco occaional drinker no tobacco occaional drinker Problems Problem Type SNOMED Code ICD Code Onset Dates Problem Status W/U Status Risk Notes Problem Colon cancer screening (147787553) Colon cancer screening (Z12.11) Active confirmed Problem Pre-procedure evaluation check (941794682) Encounter for other preprocedural examination (Z01.818) Active confirmed Problem Long-term current use of drug therapy (103187533) Long-term current use of high risk medication other than anticoagulant (Z79.899) Active confirmed Plan Of Treatment Future Test Test Name Order Date COLONOSCOPY 09/01/2015 COLONOSCOPY 12/07/2016 Insurance Providers Payer Name Payer Address Payer Phone Subscriber Number Group Number Insured Name Patient Relationship to Insured Coverage Start Date Coverage End Date [facility] [address] [place], [place] [id number] [phone] [id number] CHANDLER HOLLIS Self - patient is the insured Medical (General) History Medical History History ICD Code Denies AL,DM,CVA,Lung disease,renal dise ase back pain
--- NOTE | 2025-06-29 08:48 | A.OFFVIS_ITS ---
Intake Visit Reasons: muscle weakness HPI Comments Details: The patient is a 60 year old individual presenting with loss of strength in the right hand. The weakness began approximately two to five months ago and has been worsening. The patient reports frequently dropping objects and noted reduced control while using a knife, resulting in self-injury to a finger on two occasions. Associated symptoms include numbness and a cold sensation in the right hand. The patient denies any pain in the hand, neck pain, or headaches, and the symptoms do not cause nocturnal awakenings. 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 Past medical history is significant for multiple myeloma, for which the patient received CAR-T therapy and is now in remission. The patient also reports a history of neuropathy in the legs, which reportedly began around the same time as the hand weakness. Review of Systems Narrative - Neurological: Reports progressive weakness, numbness, and cold sensation in the right hand for several months. - Reports dropping objects and history of neuropathy in the legs. - Denies headaches or symptoms that cause nocturnal awakenings. - Musculoskeletal: Denies pain in the right hand or neck. Physical Exam Neuro Other: Mental Status: Alert and oriented to person, place, and time. Normal attention. Normal spontaneous speech, fluency, and comprehension. No obvious issues with mood and memory. Affect is appropriate. Cranial Nerves: CN II: Visual maldonado full to confrontation, visual acuity intact. CN III, IV, : Pupils equal, round, reactive to light and accommodation. Extraocular movements are normal. CN V: Facial sensation is normal. CN VII: Facial movements symmetrical. CN VIII: Hearing intact to bedside conversation is normal. CN IX, X: Palate elevates symmetrically. CN XI: Shoulder shrug and head turn symmetrical. CN XII: Tongue midline without atrophy or fasciculations. Motor: Bulk and tone normal in all extremities. No significant muscle weakness in arms and legs. No drift. Reflexes: Deep tendon reflexes 2+ and symmetric. Plantar response down-going bilaterally. Coordination: [id number] is ok Gait and Station: No obvious gait abnormality. No ataxia or instability. Extrapyramidal: Full facial expressions and blinking. No rigidity. Movements are appropriate with no tremor or abnormality. Speech: Normal; no dysarthria or tremor. Assessment & Plan Assessment & Plan (1) CTS (carpal tunnel syndrome): Code(s): G56.00 - Carpal tunnel syndrome, unspecified upper limb Category: Medical Qualifiers: Laterality: right Qualified Code(s): G56.01 - Carpal tunnel syndrome, right upper limb Plan Impression: 1. Probably carpal tunnel syndrome 2. History of multiple myeloma Recommendations: 1. EMG nerve conduction study right upper extremity Orders: Orders NE nerve conduction velocity Today G56.01 - Carpal tunnel syndrome, right upper limb NE electromyogram (EMG) Today G56.01 - Carpal tunnel syndrome, right upper limb Coding Level of Care Code New Pt Level 3 (17738) Diagnoses Carpal tunnel syndrome of right wrist G56.01 Laterality: right
== END 2025-06-29 10:08 | disposition home or self-care (01) ==
PROVIDERS: PCP Internal Medicine Medical Oncology; Visit Provider Psychiatry & Neurology Neurology
DX: G56.01 Carpal tunnel syndrome, right upper limb (principal)
CPT/HCPCS: 99203

== ENCOUNTER → 2025-06-29 08:11 | Outpatient (BNVA) | payer MEDICARE, SELFPAY | PROVIDERS: PCP Internal Medicine Medical Oncology; Visit Provider Psychiatry & Neurology Neurology | DX: G56.01 Carpal tunnel syndrome, right upper limb (principal); C90.01 Multiple myeloma in remission | CPT/HCPCS: 99202 ==